=== PATIENT | female | born 1970 ===

== ENCOUNTER 2017-09-21 22:36 | Inpatient (IN) ==
[2017-09-21] MEDS ORDERED: NITROGLYCERIN 2% OINT 1 INCH/GM PACK TOP STA (23:06)
[2017-09-21] MEDS ORDERED: ONDANSETRON 4 MG/2 ML VIAL IV STA (23:06)
[2017-09-21] MEDS ORDERED: ASPIRIN 325 MG TABLET PO STA (23:06)
[2017-09-21] MEDS ORDERED: hydrALAZINE 20 MG/1 ML VIAL IV STA (23:06)
[2017-09-21] MEDS ORDERED: HYDROmorphone 2 MG/1 ML VIAL IV STA (23:06)
[2017-09-21] MEDS ORDERED: METOPROLOL TARTRATE 5 MG/5 ML VIAL IV STA (23:06)
[2017-09-21] MEDS ORDERED: NITROGLYCERIN 2% OINT 1 INCH/GM PACK TOP ONE (23:17)
[2017-09-21] MEDS ORDERED: hydrALAZINE 20 MG/1 ML VIAL ONE (23:17)
[2017-09-21] MEDS ORDERED: METOPROLOL TARTRATE 5 MG/5 ML VIAL IV ONE (23:18)
[2017-09-21] MEDS ORDERED: ONDANSETRON 4 MG/2 ML VIAL ONE (23:18)
[2017-09-21] MEDS ORDERED: HYDROmorphone 2 MG/1 ML VIAL ONE (23:18)
[2017-09-21 23:30] LABS: INR 0.9; PT Patient Result 9.9 SECS
[2017-09-21 23:47] LABS: Alanine Aminotransferase 31 U/L (13-56); Albumin 3.2 G/DL (3.4-5.0); Alkaline Phosphatase 130 U/L (45-117); Aspartate Amino Transferase 29 U/L (0-37); Blood Urea Nitrogen 16 MG/DL (7-18); Calcium 8.3 MG/DL (8.5-10.1); Glucose 107 MG/DL (74-106); Osmolality,Calculated 279.4 MOS/KG (273-304); Potassium 3.9 MMOL/L (3.5-5.1); Sodium 140 MMOL/L (136-145); Total Protein 7.7 G/DL (6.4-8.3)
[2017-09-21 23:52] LABS: Troponin I Only 0.396 NG/ML (0.00-0.045)
[2017-09-21 23:57] LABS: Basophils % 0.2 % (0.0-0.8); Eosinophils # 0.3 10*3/uL (0.0-0.87); Eosinophils % 2.5 % (0.00-10.9); Hematocrit 35.2 VOL% (35.7-47.0); Hemoglobin 12.7 GM/DL (12.0-16.0); Immature Granulocytes % 0.5 %; Immature Granulocytes Absolute 0.05 #; Lymphocytes # 1.2 10*3/uL (1.4-4.0); Lymphocytes % 12.5 % (21.3-54.2); Mean Corpuscular HGB Conc 36.1 GM/DL (32-36); Mean Corpuscular Hemoglobin 31 PG (27-34); Mean Corpuscular Volume 85.6 FL (87-102); Mean Platelet Volume 9.5 FL (9.6-12.0); Monocytes # 0.7 10*3/uL (0.11-0.8); Monocytes % 6.8 % (1.7-12.7); Neutrophils # 7.7 10*3/uL (1.4-7.4); Neutrophils % 77.5 % (38.7-73.9); Red Blood Count 4.11 MC/CUMM (3.8-5.5); Red Cell Distribution Width 13.6 % (9.3-17.3)
[2017-09-21 23:59] LABS: Platelet Count 87 T/CUMM (130-400)
[2017-09-22 00:12] LABS: Platelet Estimate Decreased
[2017-09-22 00:39] LABS: Apearance,Urine CLEAR (Clear); Bilirubin,Urine Negative (Negative); Blood, Urine Small mg/dL (Negative); Glucose,Urine (UA) Negative (Negative); Hyaline Casts,Urine 1 /LPF (0-3); Ketones,Urine Negative (Negative); Nitrite,Urine Negative (Negative); Protein,Urine 100 MG/DL; RBC,Urine 1 /HPF (0-4); Squamous Epithelial Cell,Urine Occasional /HPF (0-10); Urine Color Yellow (Yellow); Urine Specific Gravity 1.011 (1.001-1.035); Urine Urobilinogen < 2.0 EU/DL (0.2-1.0); WBC,Urine 1 /HPF (0-6)
[2017-09-22 00:47] LABS: Barbiturates Screen,Urine Negative (Negative); Benzodiazepines Screen,Urine Negative (Negative); Cannabinoid Screen,Urine Negative (Negative); Opiate Screen,Urine Positive (Negative); Phencyclidine Screen,Urine Negative (Negative)
[2017-09-22] MEDS ORDERED: METOPROLOL TARTRATE 5 MG/5 ML VIAL IV PRN (02:17)
[2017-09-22] MEDS ORDERED: ACETAMINOPHEN 325 MG TABLET PO PRN (03:11)
[2017-09-22] MEDS ORDERED: ONDANSETRON 4 MG/2 ML VIAL IV PRN (03:11)
[2017-09-22] MEDS ORDERED: NICOTINE 21 MG/24 HR PATCH TRANSDERM PRN (03:11)
[2017-09-22] MEDS ORDERED: SODIUM CHLORIDE 0.9% 1,000 ML IV SCH (03:11)
[2017-09-22] MEDS ORDERED: MORPHINE 2 MG/1 ML SYRINGE IV PRN (03:11)
[2017-09-22] MEDS: NITROGLYCERIN 2% OINT 1 INCH/GM PACK TOP SCH ×2 (03:21→17:37)
[2017-09-22] MEDS: LEVOFLOXACIN INJ 750 MG in PREMIX 1 EACH IV SCH (03:24)
[2017-09-22 05:53] LABS: Risk Ratio 2.45; VLDL CHOLESTEROL 13.4 MG/DL
[2017-09-22] MEDS ORDERED: NITROGLYCERIN SL 0.4 MG TABLET SL PRN (05:58)
[2017-09-22] MEDS ORDERED: PROMETHAZINE 25 MG/1 ML VIAL IM PRN (05:59)
[2017-09-22] MEDS ORDERED: METOPROLOL TARTRATE 50 MG TABLET PO SCH (06:51)
[2017-09-22] MEDS ORDERED: TICAGRELOR 90 MG TABLET PO ONE (06:55)
[2017-09-22] MEDS ORDERED: ENOXAPARIN 100 MG/ML SYRINGE SUBCUT ONE (06:57)
[2017-09-22] MEDS ORDERED: NITROGLYCERIN 2% OINT 1 INCH/GM PACK TOP ONE (06:58)
[2017-09-22] MEDS ORDERED: ASPIRIN CHEW 81 MG TABLET PO ONE (06:59)
[2017-09-22] MEDS: METOPROLOL TARTRATE 5 MG/5 ML VIAL IV SCH ×2 (07:10→07:25)
[2017-09-22] MEDS ORDERED: MAGNESIUM SULF RIDER 2 GM in PREMIX 1 EACH IV PRN (07:15)
[2017-09-22] MEDS ORDERED: DIAZEPAM 5 MG TABLET PO ONE (07:15)
[2017-09-22] MEDS ORDERED: diphenhydrAMINE CAP 25 MG CAPSULE PO ONE (07:15)
[2017-09-22] MEDS ORDERED: POTASSIUM CHLORIDE RIDER 10 MEQ in PREMIX 1 EACH IV PRN (07:15)
[2017-09-22] MEDS ORDERED: ROSUVASTATIN 20 MG TABLET PO ONE (07:19)
[2017-09-22] MEDS ORDERED: LIDOCAINE 1% 20 ML VIAL ONE (07:22)
[2017-09-22] MEDS ORDERED: diphenhydrAMINE CAP 25 MG CAPSULE ONE (07:52)
[2017-09-22] MEDS ORDERED: DIAZEPAM 5 MG TABLET ONE (07:52)
[2017-09-22] MEDS ORDERED: MEPERIDINE 25 MG/1 ML VIAL ONE (07:58)
[2017-09-22] MEDS ORDERED: MIDAZOLAM 2 MG/2 ML VIAL ONE (07:58)
[2017-09-22] MEDS ORDERED: diphenhydrAMINE 50 MG/1 ML VIAL ONE (07:58)
[2017-09-22] MEDS ORDERED: hydrALAZINE 20 MG/1 ML VIAL ONE (08:05)
[2017-09-22] MEDS ORDERED: HEPARIN 5,000 UNIT/1 ML VIAL ONE (08:20)
[2017-09-22] MEDS: LEVALBUTEROL 1.25 MG/3 ML NEB RESP TX SCH ×4 (08:20→19:56)
[2017-09-22] MEDS ORDERED: TIROFIBAN 5,000 MCG/100 ML PREMIX IV ONE (08:21)
[2017-09-22] MEDS ORDERED: TIROFIBAN 5,000 MCG/100 ML PREMIX IV SCH (08:28)
[2017-09-22] MEDS ORDERED: NITROGLYCERIN DRIP 50 MG/250 ML BOTTLE IV ONE (08:48)
[2017-09-22] MEDS ORDERED: ENOXAPARIN 40 MG/0.4 ML SYRINGE SUBCUT SCH (09:00)
[2017-09-22] MEDS ORDERED: ASPIRIN 325 MG TABLET PO SCH (09:00)
[2017-09-22] MEDS ORDERED: CARVEDILOL 12.5 MG TABLET PO SCH (10:30)
[2017-09-22 16:58] LABS: CKMB % 8.6 %
[2017-09-22 17:01] LABS: Troponin I Only > 200.000 NG/ML (0.00-0.045)
[2017-09-22] MEDS: CAPTOPRIL 6.25 MG TABLET PO SCH ×2 (17:36→17:40)
[2017-09-22] MEDS: DOCUSATE SODIUM 100 MG CAPSULE PO SCH ×2 (17:37→20:33)
[2017-09-22] MEDS: PANTOPRAZOLE 40 MG TABLET PO SCH (17:40)
[2017-09-22 19:53] LABS: Troponin I Only > 200.000 NG/ML (0.00-0.045)
[2017-09-22] MEDS: ROSUVASTATIN 20 MG TABLET PO SCH (20:32)
[2017-09-22] MEDS: FUROSEMIDE 20 MG/2 ML VIAL IV SCH (20:32)
[2017-09-22] MEDS: TICAGRELOR 90 MG TABLET PO SCH (20:33)
[2017-09-22] MEDS: LOSARTAN 25 MG TABLET PO SCH (20:33)
[2017-09-23] MEDS: LEVALBUTEROL 1.25 MG/3 ML NEB RESP TX SCH ×7 (00:24→19:47)
[2017-09-23] MEDS: NITROGLYCERIN 2% OINT 1 INCH/GM PACK TOP SCH ×2 (00:38→12:52)
[2017-09-23] MEDS: CARVEDILOL 12.5 MG TABLET PO SCH ×3 (00:58→19:46)
[2017-09-23] MEDS: LEVOFLOXACIN INJ 750 MG in PREMIX 1 EACH IV SCH (04:05)
[2017-09-23 05:03] LABS: Calcium 7.5 MG/DL (8.5-10.1); Osmolality,Calculated 283.3 MOS/KG (273-304); Potassium 3.5 MMOL/L (3.5-5.1)
[2017-09-23 05:11] LABS: CKMB % 5.9 %
[2017-09-23 05:20] LABS: Troponin I Only > 200.000 NG/ML (0.00-0.045)
[2017-09-23 06:01] LABS: Basophils % 0.3 % (0.0-0.8); Eosinophils # 0.2 10*3/uL (0.0-0.87); Eosinophils % 2.9 % (0.00-10.9); Hematocrit 29.6 VOL% (35.7-47.0); Immature Granulocytes Absolute 0.06 #; Lymphocytes # 1.7 10*3/uL (1.4-4.0); Lymphocytes % 26.9 % (21.3-54.2); Mean Corpuscular HGB Conc 35.8 GM/DL (32-36); Mean Corpuscular Hemoglobin 31 PG (27-34); Mean Corpuscular Volume 87.3 FL (87-102); Mean Platelet Volume 9.6 FL (9.6-12.0); Monocytes # 0.3 10*3/uL (0.11-0.8); Monocytes % 5.2 % (1.7-12.7); Neutrophils # 3.9 10*3/uL (1.4-7.4); Neutrophils % 63.7 % (38.7-73.9); Platelet Count 121 T/CUMM (130-400); Red Blood Count 3.39 MC/CUMM (3.8-5.5); Red Cell Distribution Width 14.5 % (9.3-17.3)
[2017-09-23 06:05] LABS: White Blood Count 6.2 T/CUMM (4-12)
[2017-09-23 06:06] LABS: Hemoglobin 10.6 GM/DL (12.0-16.0)
[2017-09-23] MEDS: DOCUSATE SODIUM 100 MG CAPSULE PO SCH ×2 (08:52→20:36)
[2017-09-23] MEDS: FUROSEMIDE 20 MG/2 ML VIAL IV SCH (08:52)
[2017-09-23] MEDS: ASPIRIN CHEW 81 MG TABLET PO SCH (08:53)
[2017-09-23] MEDS: LOSARTAN 25 MG TABLET PO SCH ×2 (08:53→20:36)
[2017-09-23] MEDS: PANTOPRAZOLE 40 MG TABLET PO SCH (08:53)
[2017-09-23] MEDS: TICAGRELOR 90 MG TABLET PO SCH ×2 (08:55→22:09)
[2017-09-23 16:24] LABS: CKMB % 3.4 %
[2017-09-23 16:27] LABS: Troponin I Only > 200.000 NG/ML (0.00-0.045)
[2017-09-23 18:23] LABS: CKMB % 2.8 %
[2017-09-23 18:28] LABS: Troponin I Only > 200.000 NG/ML (0.00-0.045)
[2017-09-23] MEDS ORDERED: POTASSIUM CHLORIDE 20 MEQ/15 ML UDCUP PO ONE (20:28)
[2017-09-23] MEDS: ROSUVASTATIN 20 MG TABLET PO SCH (20:36)
[2017-09-23] MEDS: CARVEDILOL 25 MG TABLET PO SCH (20:42)
[2017-09-23] MEDS ORDERED: ZALEPLON 5 MG CAPSULE PO PRN (21:42)
[2017-09-23 22:02] LABS: CKMB % 2.2 %; Troponin I Only 78.1 NG/ML (0.00-0.045)
[2017-09-24] MEDS: LEVALBUTEROL 1.25 MG/3 ML NEB RESP TX SCH ×4 (00:19→12:02)
[2017-09-24 04:00] LABS: Magnesium 1.9 MG/DL (1.8-2.4); Osmolality,Calculated 286.1 MOS/KG (273-304); Potassium 3.5 MMOL/L (3.5-5.1)
[2017-09-24] MEDS: LEVOFLOXACIN INJ 750 MG in PREMIX 1 EACH IV SCH (04:01)
[2017-09-24 07:01] LABS: Basophils % 0.2 % (0.0-0.8); Eosinophils # 0.3 10*3/uL (0.0-0.87); Eosinophils % 4.9 % (0.00-10.9); Hematocrit 31.8 VOL% (35.7-47.0); Hemoglobin 11.5 GM/DL (12.0-16.0); Immature Granulocytes % 0.5 %; Immature Granulocytes Absolute 0.03 #; Lymphocytes % 17.7 % (21.3-54.2); Mean Corpuscular HGB Conc 36.2 GM/DL (32-36); Mean Corpuscular Hemoglobin 32 PG (27-34); Mean Corpuscular Volume 87.1 FL (87-102); Mean Platelet Volume 9.8 FL (9.6-12.0); Monocytes # 0.4 10*3/uL (0.11-0.8); Monocytes % 6.3 % (1.7-12.7); Neutrophils # 4.1 10*3/uL (1.4-7.4); Neutrophils % 70.4 % (38.7-73.9); Platelet Count 110 T/CUMM (130-400); Red Blood Count 3.65 MC/CUMM (3.8-5.5); Red Cell Distribution Width 13.8 % (9.3-17.3); White Blood Count 5.8 T/CUMM (4-12)
[2017-09-24] MEDS ORDERED: FUROSEMIDE 20 MG TABLET PO SCH (09:00)
[2017-09-24] MEDS: DOCUSATE SODIUM 100 MG CAPSULE PO SCH (09:06)
[2017-09-24] MEDS: CARVEDILOL 25 MG TABLET PO SCH (09:06)
[2017-09-24] MEDS: PANTOPRAZOLE 40 MG TABLET PO SCH (09:06)
[2017-09-24] MEDS: LOSARTAN 25 MG TABLET PO SCH (09:06)
[2017-09-24] MEDS: ASPIRIN CHEW 81 MG TABLET PO SCH (09:06)
[2017-09-24] MEDS: TICAGRELOR 90 MG TABLET PO SCH (09:07)
[2017-09-24 11:11] VITALS: BP 121/74
== END 2017-09-24 15:06 | disposition home or self-care (01) | DRG 246 ==
LOC: EDBD → EDUNIT# → N.ED 22:36 → N.EDINP 09-22 02:05 → N.TELEN 09-22 02:50
PROVIDERS: ADMIT Internal Medicine; ATTEND Internal Medicine
PROC: CLCCHCL (ICD-10-PCS; 2017-09-22 08:15)

== ENCOUNTER 2017-10-02 04:01 | Inpatient (IN) ==
[2017-10-02 04:59] LABS: PT Patient Result 10.5 SECS; Partial Thromboplastin Time 27.9 SECS (0-40)
[2017-10-02 05:40] LABS: Albumin 2.8 G/DL (3.4-5.0); Bilirubin,Total 0.4 MG/DL (0.2-1.0); Calcium 7.8 MG/DL (8.5-10.1); Osmolality,Calculated 283.7 MOS/KG (273-304); Potassium 3.5 MMOL/L (3.5-5.1); Total Protein 7.2 G/DL (6.4-8.3)
[2017-10-02] MEDS ORDERED: SODIUM CHLORIDE 0.9% 2,000 ML IV STA (06:27)
[2017-10-02] MEDS ORDERED: ALBUTEROL 2.5 MG/3 ML NEB RESP TX PRN (06:30)
[2017-10-02] MEDS ORDERED: ONDANSETRON 4 MG/2 ML VIAL IV PRN (06:30)
[2017-10-02] MEDS ORDERED: SODIUM CHLORIDE 0.9% 1,000 ML IV SCH (06:30)
[2017-10-02] MEDS ORDERED: SODIUM CHLORIDE 0.9% 1,000 ML IV PRN (06:41)
[2017-10-02 06:42] LABS: Basophils % 0.4 % (0.0-0.8); Eosinophils # 0.1 10*3/uL (0.0-0.87); Eosinophils % 5.9 % (0.00-10.9); Hematocrit 29.2 VOL% (35.7-47.0); Immature Granulocytes % 0.4 %; Immature Granulocytes Absolute 0.01 #; Lymphocytes # 0.6 10*3/uL (1.4-4.0); Lymphocytes % 24.6 % (21.3-54.2); Mean Corpuscular HGB Conc 34.2 GM/DL (32-36); Mean Corpuscular Hemoglobin 31 PG (27-34); Mean Corpuscular Volume 89.6 FL (87-102); Monocytes # 0.2 10*3/uL (0.11-0.8); Monocytes % 9.3 % (1.7-12.7); Neutrophils # 1.4 10*3/uL (1.4-7.4); Neutrophils % 59.4 % (38.7-73.9); Red Blood Count 3.26 MC/CUMM (3.8-5.5); Red Cell Distribution Width 13.6 % (9.3-17.3); White Blood Count 2.4 T/CUMM (4-12)
[2017-10-02 07:02] LABS: Platelet Count 1 T/CUMM (130-400)
[2017-10-02] MEDS ORDERED: PNEUMOCOCCAL VACCINE (23 VALENT) 0.5 ML VIAL IM ONE (08:17)
[2017-10-02] MEDS ORDERED: PANTOPRAZOLE 40 MG TABLET PO SCH (09:00)
[2017-10-02 09:03] LABS: Eosinophils # 0.1 10*3/uL (0.0-0.87); Eosinophils % 7.1 % (0.00-10.9); Hematocrit 26.3 VOL% (35.7-47.0); Hemoglobin 9.1 GM/DL (12.0-16.0); Immature Granulocytes Absolute 0.02 #; Lymphocytes # 0.6 10*3/uL (1.4-4.0); Lymphocytes % 32.5 % (21.3-54.2); Mean Corpuscular HGB Conc 34.6 GM/DL (32-36); Mean Corpuscular Hemoglobin 31 PG (27-34); Mean Corpuscular Volume 89.5 FL (87-102); Mean Platelet Volume 11.3 FL (9.6-12.0); Monocytes # 0.3 10*3/uL (0.11-0.8); Monocytes % 12.7 % (1.7-12.7); Neutrophils # 0.9 10*3/uL (1.4-7.4); Neutrophils % 46.7 % (38.7-73.9); Red Blood Count 2.94 MC/CUMM (3.8-5.5); Red Cell Distribution Width 13.5 % (9.3-17.3)
[2017-10-02 09:10] LABS: Platelet Count 10 T/CUMM (130-400)
[2017-10-02] MEDS: methylPREDNISolone SOD SUC 125 MG/2 ML VIAL IV SCH ×3 (09:19→20:26)
[2017-10-02 11:01] LABS: Total Protein 6.3 G/DL (6.4-8.3)
[2017-10-02 11:04] LABS: Eosinophils # 0.1 10*3/uL (0.0-0.87); Eosinophils % 5.9 % (0.00-10.9); Hematocrit 25.9 VOL% (35.7-47.0); Immature Granulocytes % 1.4 %; Immature Granulocytes Absolute 0.03 #; Lymphocytes # 0.5 10*3/uL (1.4-4.0); Lymphocytes % 22.6 % (21.3-54.2); Mean Corpuscular HGB Conc 34.7 GM/DL (32-36); Mean Corpuscular Hemoglobin 31 PG (27-34); Mean Corpuscular Volume 88.4 FL (87-102); Mean Platelet Volume 11.6 FL (9.6-12.0); Monocytes # 0.2 10*3/uL (0.11-0.8); Monocytes % 6.8 % (1.7-12.7); Neutrophils # 1.4 10*3/uL (1.4-7.4); Neutrophils % 63.3 % (38.7-73.9); Red Blood Count 2.93 MC/CUMM (3.8-5.5); Red Cell Distribution Width 13.4 % (9.3-17.3); White Blood Count 2.2 T/CUMM (4-12)
[2017-10-02 11:05] LABS: Platelet Count 9 T/CUMM (130-400)
[2017-10-02 11:28] LABS: Band Neutrophils 11 % (0-10); Lymphocytes 28 % (20-55); Platelet Estimate Decreased; Segmented Neutrophils 57 % (50-85); Total Cells Counted 100
[2017-10-02 11:34] LABS: % Iron Saturation 18.6 % (18-50); Ferritin 236.9 ng/ml (8-252)
[2017-10-02 11:35] LABS: Band Neutrophils 4 % (0-10); Eosinophils 10 % (0-10); Lymphocytes 32 % (20-55); Segmented Neutrophils 53 % (50-85); Total Cells Counted 100
[2017-10-02 11:36] LABS: Platelet Estimate Decreased
[2017-10-02] MEDS: ALPRAZolam 0.25 MG TABLET PO PRN ×2 (11:55→20:26)
[2017-10-02 12:07] LABS: Folate 8.4 NG/ML (5.4-24.0); Vitamin B12 250 PG/ML (211-911)
[2017-10-02 12:50] LABS: Eosinophils # 0.1 10*3/uL (0.0-0.87); Eosinophils % 3.3 % (0.00-10.9); Hematocrit 28.7 VOL% (35.7-47.0); Immature Granulocytes % 1.6 %; Immature Granulocytes Absolute 0.04 #; Lymphocytes # 0.6 10*3/uL (1.4-4.0); Lymphocytes % 23.2 % (21.3-54.2); Mean Corpuscular HGB Conc 34.8 GM/DL (32-36); Mean Corpuscular Hemoglobin 31 PG (27-34); Mean Corpuscular Volume 88.3 FL (87-102); Monocytes # 0.1 10*3/uL (0.11-0.8); Monocytes % 5.7 % (1.7-12.7); Neutrophils # 1.6 10*3/uL (1.4-7.4); Neutrophils % 66.2 % (38.7-73.9); Red Blood Count 3.25 MC/CUMM (3.8-5.5); Red Cell Distribution Width 13.3 % (9.3-17.3); White Blood Count 2.5 T/CUMM (4-12)
[2017-10-02 12:54] LABS: Platelet Count 6 T/CUMM (130-400)
[2017-10-02] MEDS: SODIUM CHLORIDE 0.65% NASAL SPRAY 45 ML BOTTLE BOTH NARES SCH ×3 (13:41→20:27)
[2017-10-02] MEDS: CARVEDILOL 3.125 MG TABLET PO SCH ×2 (13:41→20:26)
[2017-10-02 17:23] LABS: Basophils % 0.4 % (0.0-0.8); Eosinophils % 0.9 % (0.00-10.9); Hematocrit 28.4 VOL% (35.7-47.0); Immature Granulocytes Absolute 0.07 #; Lymphocytes # 0.6 10*3/uL (1.4-4.0); Lymphocytes % 27.3 % (21.3-54.2); Mean Corpuscular HGB Conc 35.2 GM/DL (32-36); Mean Corpuscular Hemoglobin 31 PG (27-34); Mean Corpuscular Volume 87.7 FL (87-102); Monocytes # 0.1 10*3/uL (0.11-0.8); Neutrophils # 1.5 10*3/uL (1.4-7.4); Neutrophils % 65.4 % (38.7-73.9); Red Blood Count 3.24 MC/CUMM (3.8-5.5); Red Cell Distribution Width 13.3 % (9.3-17.3); White Blood Count 2.3 T/CUMM (4-12)
[2017-10-02 17:26] LABS: Platelet Count 1 T/CUMM (130-400)
[2017-10-02] MEDS: DOCUSATE SODIUM 100 MG CAPSULE PO SCH (20:26)
[2017-10-02] MEDS: ROSUVASTATIN 20 MG TABLET PO SCH (20:26)
[2017-10-02 21:45] LABS: Basophils % 0.5 % (0.0-0.8); Eosinophils % 0.5 % (0.00-10.9); Hemoglobin 9.9 GM/DL (12.0-16.0); Immature Granulocytes % 1.8 %; Immature Granulocytes Absolute 0.04 #; Lymphocytes # 0.7 10*3/uL (1.4-4.0); Lymphocytes % 31.4 % (21.3-54.2); Mean Corpuscular HGB Conc 36.7 GM/DL (32-36); Mean Corpuscular Hemoglobin 31 PG (27-34); Mean Corpuscular Volume 83.9 FL (87-102); Monocytes % 1.8 % (1.7-12.7); Neutrophils # 1.4 10*3/uL (1.4-7.4); Red Blood Count 3.22 MC/CUMM (3.8-5.5); Red Cell Distribution Width 12.8 % (9.3-17.3); White Blood Count 2.2 T/CUMM (4-12)
[2017-10-02 21:55] LABS: Platelet Count 2 T/CUMM (130-400)
[2017-10-02 22:14] LABS: Atypical Lymphocytes Few; Band Neutrophils 8 % (0-10); Eosinophils 1 % (0-10); Lymphocytes 32 % (20-55); Metamyelocytes 1 %; Myelocytes 2 %; Nucleated Red Blood Cells 1 (0-5); Platelet Estimate Decreased; Promyelocytes 1 %; Segmented Neutrophils 55 % (50-85); Total Cells Counted 100
[2017-10-02] MEDS ORDERED: ZALEPLON 5 MG CAPSULE PO SCH (23:30)
[2017-10-02] MEDS: ZALEPLON 5 MG CAPSULE PO SCH (23:39)
[2017-10-03] MEDS: methylPREDNISolone SOD SUC 125 MG/2 ML VIAL IV SCH ×4 (03:05→20:59)
[2017-10-03] MEDS: MORPHINE 2 MG/1 ML SYRINGE IV PRN ×2 (04:45→20:59)
[2017-10-03 04:55] LABS: Eosinophils % 0.3 % (0.00-10.9); Hematocrit 26.6 VOL% (35.7-47.0); Immature Granulocytes % 1.5 %; Immature Granulocytes Absolute 0.05 #; Lymphocytes % 31.6 % (21.3-54.2); Mean Corpuscular HGB Conc 37.6 GM/DL (32-36); Mean Corpuscular Hemoglobin 31 PG (27-34); Mean Corpuscular Volume 83.6 FL (87-102); Monocytes # 0.1 10*3/uL (0.11-0.8); Monocytes % 3.3 % (1.7-12.7); Neutrophils # 2.1 10*3/uL (1.4-7.4); Neutrophils % 63.3 % (38.7-73.9); Red Blood Count 3.18 MC/CUMM (3.8-5.5); Red Cell Distribution Width 12.8 % (9.3-17.3); White Blood Count 3.3 T/CUMM (4-12)
[2017-10-03 04:57] LABS: Platelet Count 1 T/CUMM (130-400)
[2017-10-03 05:44] LABS: Osmolality,Calculated 281.7 MOS/KG (273-304); Potassium 3.7 MMOL/L (3.5-5.1)
[2017-10-03] MEDS: CARVEDILOL 3.125 MG TABLET PO SCH ×2 (08:23→20:58)
[2017-10-03] MEDS: DOCUSATE SODIUM 100 MG CAPSULE PO SCH ×2 (08:23→20:58)
[2017-10-03] MEDS: SODIUM CHLORIDE 0.65% NASAL SPRAY 45 ML BOTTLE BOTH NARES SCH ×4 (08:24→20:58)
[2017-10-03 09:24] LABS: Hematocrit 30.3 VOL% (35.7-47.0); Hemoglobin 10.7 GM/DL (12.0-16.0); Immature Granulocytes % 1.3 %; Immature Granulocytes Absolute 0.05 #; Lymphocytes # 1.3 10*3/uL (1.4-4.0); Lymphocytes % 31.8 % (21.3-54.2); Mean Corpuscular HGB Conc 35.3 GM/DL (32-36); Mean Corpuscular Hemoglobin 31 PG (27-34); Mean Corpuscular Volume 86.8 FL (87-102); Monocytes # 0.1 10*3/uL (0.11-0.8); Monocytes % 2.5 % (1.7-12.7); Neutrophils # 2.5 10*3/uL (1.4-7.4); Neutrophils % 64.4 % (38.7-73.9); Red Blood Count 3.49 MC/CUMM (3.8-5.5); Red Cell Distribution Width 13.2 % (9.3-17.3); White Blood Count 3.9 T/CUMM (4-12)
[2017-10-03 09:30] LABS: Platelet Count 5 T/CUMM (130-400)
[2017-10-03] MEDS: traMADol 50 MG TABLET PO PRN ×2 (11:28→18:48)
[2017-10-03] MEDS ORDERED: DEXTROSE 50% 25 GM/50 ML VIAL IV PRN (11:51)
[2017-10-03] MEDS ORDERED: GLUCAGON 1 MG VIAL IM PRN (11:51)
[2017-10-03] MEDS: CYANOCOBALAMIN 500 MCG TABLET PO SCH (15:31)
[2017-10-03] MEDS: ALPRAZolam 0.25 MG TABLET PO PRN (15:35)
[2017-10-03] MEDS: INSULIN LISPRO 100 UNIT/ML SUBCUT SCH ×2 (16:59→20:59)
[2017-10-03] MEDS: ROSUVASTATIN 20 MG TABLET PO SCH (20:58)
[2017-10-03] MEDS: ZALEPLON 5 MG CAPSULE PO SCH (20:58)
[2017-10-04] MEDS: methylPREDNISolone SOD SUC 125 MG/2 ML VIAL IV SCH ×4 (03:08→21:37)
[2017-10-04 07:52] LABS: Albumin (SPE) 3.2 G/DL (3.2-5.3); Albumin (SPE) Rel % 50.6 %; Alpha 1 (SPE) 0.2 G/DL (0.1-0.4); Alpha 1 (SPE) Rel % 3.5 %; Alpha 2 (SPE) 0.7 G/DL (0.4-1.0); Alpha 2 (SPE) Rel % 10.9 %; Beta (SPE) 0.5 G/DL (0.5-1.1); Beta (SPE) Rel % 7.8 %; Total Protein (Chem) 6.3 G/DL (6.4-8.3)
[2017-10-04 07:53] LABS: Gamma (SPE) 1.7 G/DL (0.7-1.7); Gamma (SPE) Rel % 27.2 %
[2017-10-04 08:10] LABS: Basophils % 0.2 % (0.0-0.8); Eosinophils % 0.2 % (0.00-10.9); Hematocrit 27.3 VOL% (35.7-47.0); Hemoglobin 9.4 GM/DL (12.0-16.0); Immature Granulocytes Absolute 0.12 #; Lymphocytes # 1.4 10*3/uL (1.4-4.0); Lymphocytes % 23.3 % (21.3-54.2); Mean Corpuscular HGB Conc 34.4 GM/DL (32-36); Mean Corpuscular Hemoglobin 30 PG (27-34); Mean Corpuscular Volume 87.8 FL (87-102); Monocytes # 0.3 10*3/uL (0.11-0.8); Monocytes % 4.6 % (1.7-12.7); Neutrophils # 4.1 10*3/uL (1.4-7.4); Neutrophils % 69.7 % (38.7-73.9); Red Blood Count 3.11 MC/CUMM (3.8-5.5); Red Cell Distribution Width 13.3 % (9.3-17.3); White Blood Count 5.9 T/CUMM (4-12)
[2017-10-04 08:24] LABS: Platelet Count 21 T/CUMM (130-400)
[2017-10-04 08:44] LABS: Hypochromasia 1+; Platelet Estimate Decreased
[2017-10-04 08:45] LABS: Giant Platelets Few; Microcytosis Slight; Ovalocytes Slight
[2017-10-04] MEDS: CYANOCOBALAMIN 500 MCG TABLET PO SCH (09:09)
[2017-10-04] MEDS: DOCUSATE SODIUM 100 MG CAPSULE PO SCH ×2 (09:10→21:35)
[2017-10-04] MEDS: CARVEDILOL 3.125 MG TABLET PO SCH ×2 (09:10→21:36)
[2017-10-04] MEDS: SODIUM CHLORIDE 0.65% NASAL SPRAY 45 ML BOTTLE BOTH NARES SCH ×4 (09:10→21:37)
[2017-10-04] MEDS: INSULIN LISPRO 100 UNIT/ML SUBCUT SCH ×4 (09:25→21:36)
[2017-10-04] MEDS: traMADol 50 MG TABLET PO PRN ×3 (09:25→20:02)
[2017-10-04] MEDS ORDERED: diphenhydrAMINE CAP 50 MG CAPSULE PO PRN (16:52)
[2017-10-04] MEDS: ZALEPLON 5 MG CAPSULE PO SCH (21:35)
[2017-10-04] MEDS: ROSUVASTATIN 20 MG TABLET PO SCH (21:36)
[2017-10-05] MEDS: methylPREDNISolone SOD SUC 125 MG/2 ML VIAL IV SCH (03:08)
[2017-10-05] MEDS: ALPRAZolam 0.25 MG TABLET PO PRN ×2 (03:13→09:44)
[2017-10-05 04:17] LABS: Basophils % 0.1 % (0.0-0.8); Hematocrit 28.6 VOL% (35.7-47.0); Hemoglobin 9.9 GM/DL (12.0-16.0); Immature Granulocytes % 4.7 %; Immature Granulocytes Absolute 0.41 #; Lymphocytes # 1.7 10*3/uL (1.4-4.0); Lymphocytes % 19.7 % (21.3-54.2); Mean Corpuscular HGB Conc 34.6 GM/DL (32-36); Mean Corpuscular Hemoglobin 31 PG (27-34); Mean Corpuscular Volume 88.5 FL (87-102); Mean Platelet Volume 13.1 FL (9.6-12.0); Monocytes # 0.5 10*3/uL (0.11-0.8); Monocytes % 5.4 % (1.7-12.7); NRBC # 0.02 10*3/uL; Neutrophils # 6.1 10*3/uL (1.4-7.4); Neutrophils % 70.1 % (38.7-73.9); Platelet Count 44 T/CUMM (130-400); Red Blood Count 3.23 MC/CUMM (3.8-5.5); Red Cell Distribution Width 13.7 % (9.3-17.3); White Blood Count 8.7 T/CUMM (4-12)
[2017-10-05 04:45] LABS: Calcium 7.7 MG/DL (8.5-10.1); Osmolality,Calculated 292.7 MOS/KG (273-304); Potassium 3.9 MMOL/L (3.5-5.1)
[2017-10-05 06:47] LABS: Immuno Free Light Chain Kappa 24.94 MG/DL (0.33-1.94); Immuno Free Light Chain Lambda 11.36 MG/DL (0.57-2.63)
[2017-10-05] MEDS ORDERED: methylPREDNISolone SOD SUC 125 MG/2 ML VIAL IV ONE (08:05)
[2017-10-05] MEDS ORDERED: predniSONE 20 MG TABLET PO SCH (09:00)
[2017-10-05] MEDS: CYANOCOBALAMIN 500 MCG TABLET PO SCH (09:35)
[2017-10-05] MEDS: FERROUS SULFATE 325 MG TABLET PO SCH ×2 (09:35→21:52)
[2017-10-05] MEDS: CARVEDILOL 3.125 MG TABLET PO SCH (09:36)
[2017-10-05] MEDS: INSULIN LISPRO 100 UNIT/ML SUBCUT SCH ×4 (09:36→21:52)
[2017-10-05] MEDS: DOCUSATE SODIUM 100 MG CAPSULE PO SCH ×2 (09:36→21:52)
[2017-10-05] MEDS: traMADol 50 MG TABLET PO PRN (09:43)
[2017-10-05] MEDS: CLOPIDOGREL 75 MG TABLET PO SCH (09:55)
[2017-10-05] MEDS: SODIUM CHLORIDE 0.65% NASAL SPRAY 45 ML BOTTLE BOTH NARES SCH (09:55)
[2017-10-05] MEDS: LOSARTAN 25 MG TABLET PO SCH ×2 (13:19→21:52)
[2017-10-05] MEDS ORDERED: SIMETHICONE CHEW 125 MG TABLET PO PRN (15:13)
[2017-10-05 20:16] LABS: HIT Interpretation Negative (Negative)
[2017-10-05] MEDS: ROSUVASTATIN 20 MG TABLET PO SCH (21:51)
[2017-10-05] MEDS: ZALEPLON 5 MG CAPSULE PO SCH (21:51)
[2017-10-05] MEDS: CARVEDILOL 6.25 MG TABLET PO SCH (21:52)
[2017-10-06 05:03] LABS: Basophils % 0.3 % (0.0-0.8); Eosinophils % 0.1 % (0.00-10.9); Hemoglobin 9.9 GM/DL (12.0-16.0); Immature Granulocytes % 4.6 %; Immature Granulocytes Absolute 0.53 #; Lymphocytes # 3.3 10*3/uL (1.4-4.0); Lymphocytes % 28.9 % (21.3-54.2); Mean Corpuscular HGB Conc 34.1 GM/DL (32-36); Mean Corpuscular Hemoglobin 31 PG (27-34); Mean Corpuscular Volume 89.2 FL (87-102); Mean Platelet Volume 10.5 FL (9.6-12.0); Monocytes # 1.1 10*3/uL (0.11-0.8); Monocytes % 9.7 % (1.7-12.7); Neutrophils # 6.5 10*3/uL (1.4-7.4); Neutrophils % 56.4 % (38.7-73.9); Platelet Count 44 T/CUMM (130-400); Red Blood Count 3.25 MC/CUMM (3.8-5.5); Red Cell Distribution Width 13.9 % (9.3-17.3); White Blood Count 11.5 T/CUMM (4-12)
[2017-10-06 05:30] LABS: Band Neutrophils 2 % (0-10); Lymphocytes 26 % (20-55); Nucleated Red Blood Cells 1 (0-5); Segmented Neutrophils 64 % (50-85); Total Cells Counted 100
[2017-10-06 05:31] LABS: Hypochromasia 1+; Ovalocytes Slight
[2017-10-06 05:32] LABS: Microcytosis Slight; Platelet Estimate Decreased
[2017-10-06] MEDS: INSULIN LISPRO 100 UNIT/ML SUBCUT SCH ×2 (07:50→12:59)
[2017-10-06] MEDS ORDERED: predniSONE 20 MG TABLET PO SCH (07:54)
[2017-10-06 08:21] VITALS: BP 131/74
[2017-10-06] MEDS: FERROUS SULFATE 325 MG TABLET PO SCH (10:02)
[2017-10-06] MEDS: CLOPIDOGREL 75 MG TABLET PO SCH (10:02)
[2017-10-06] MEDS: DOCUSATE SODIUM 100 MG CAPSULE PO SCH (10:03)
[2017-10-06] MEDS: CYANOCOBALAMIN 500 MCG TABLET PO SCH (10:03)
[2017-10-06] MEDS: CARVEDILOL 6.25 MG TABLET PO SCH (10:03)
[2017-10-06] MEDS: LOSARTAN 25 MG TABLET PO SCH (10:03)
[2017-10-06] MEDS: ALPRAZolam 0.25 MG TABLET PO PRN (10:06)
[2017-10-07] MEDS ORDERED: ASPIRIN EC 81 MG TABLET PO SCH (09:00)
== END 2017-10-06 12:30 | disposition home or self-care (01) | DRG 813 ==
LOC: EDBD → EDUNIT# → N.ED 04:01 → N.EDINP 06:28 → SUATTDRO 06:28 → N.CC 07:22 → N.TELES 10-03 08:37
PROVIDERS: ADMIT Internal Medicine; ATTEND Internal Medicine

== ENCOUNTER 2017-11-06 16:37 | Inpatient (IN) ==
[2017-11-06] MEDS ORDERED: PIPERACILLIN/TAZOBACTAM 3,375 MG VIAL IV ONE (16:51)
[2017-11-06 16:59] LABS: ABG Base Excess -6.6 MMOL/L (-2.5-2.5); ABG HCO3 21.6 MMOL/L (20-26); ABG Oxygen Saturation 95.8 % (95-100); ABG PCO2 56.7 MM HG (35-48); ABG PO2 98.3 MM HG (80-95); ABG TCO2 23.3 MMOL/L (23-27); Pt O2 Delivery Device Ventilator
[2017-11-06 17:03] LABS: ABG PH 7.198 (7.35-7.45)
[2017-11-06] MEDS ORDERED: SODIUM BICARBONATE 50 MEQ/50 ML VIAL IV STA (17:09)
[2017-11-06] MEDS ORDERED: SODIUM BICARBONATE 50 MEQ/50 ML SYRINGE IV ONE (17:09)
[2017-11-06] MEDS: PIPERACILLIN/TAZOBACTAM 3,375 MG in SODIUM CHLORIDE 0.9% 100 ML IV SCH (17:15)
[2017-11-06 17:17] LABS: Basophils % 0.1 % (0.0-0.8); Hematocrit 29.6 VOL% (35.7-47.0); Hemoglobin 9.1 GM/DL (12.0-16.0); Immature Granulocytes % 1.6 %; Immature Granulocytes Absolute 0.32 #; Lymphocytes # 2.2 10*3/uL (1.4-4.0); Lymphocytes % 10.6 % (21.3-54.2); Mean Corpuscular HGB Conc 30.7 GM/DL (32-36); Mean Corpuscular Hemoglobin 29 PG (27-34); Mean Corpuscular Volume 94.6 FL (87-102); Mean Platelet Volume 10.9 FL (9.6-12.0); Monocytes # 0.5 10*3/uL (0.11-0.8); Monocytes % 2.3 % (1.7-12.7); Neutrophils # 17.6 10*3/uL (1.4-7.4); Neutrophils % 85.4 % (38.7-73.9); Red Blood Count 3.13 MC/CUMM (3.8-5.5); Red Cell Distribution Width 14.5 % (9.3-17.3); White Blood Count 20.5 T/CUMM (4-12)
[2017-11-06 17:20] LABS: Platelet Count 111 T/CUMM (130-400)
[2017-11-06 17:22] LABS: Amorphous Crystals,Urine Occasional /HPF (Few); Apearance,Urine CLOUDY (Clear); Bilirubin,Urine Negative (Negative); Blood, Urine Negative (Negative); Glucose,Urine (UA) Negative (Negative); Hyaline Casts,Urine 13 /LPF (0-3); Ketones,Urine Negative (Negative); Mucus,Urine Occasional /LPF (Occasional); Nitrite,Urine Negative (Negative); Protein,Urine 30 MG/DL; RBC,Urine 4 /HPF (0-4); Squamous Epithelial Cell,Urine Occasional /HPF (0-10); Urine Color Amber (Yellow); Urine Specific Gravity 1.012 (1.001-1.035); WBC,Urine 3 /HPF (0-6)
[2017-11-06] MEDS ORDERED: SODIUM CHLORIDE 0.9% 3,150 ML IV ONE (17:22)
[2017-11-06] MEDS ORDERED: ALBUTEROL 2.5 MG/3 ML NEB RESP TX PRN ×2 (17:27→17:49)
[2017-11-06 17:33] LABS: Albumin 2.2 G/DL (3.4-5.0); Bilirubin,Total 0.7 MG/DL (0.2-1.0); Calcium 7.7 MG/DL (8.5-10.1); Osmolality,Calculated 291.7 MOS/KG (273-304); Potassium 3.9 MMOL/L (3.5-5.1); Total Protein 6.9 G/DL (6.4-8.3)
[2017-11-06 17:35] LABS: Lactic Acid 0.5 MMOL/L (0.4-2.0)
[2017-11-06] MEDS ORDERED: ONDANSETRON 4 MG/2 ML VIAL IV PRN (17:49)
[2017-11-06] MEDS ORDERED: MORPHINE 2 MG/1 ML SYRINGE IV PRN (17:49)
[2017-11-06] MEDS: methylPREDNISolone SOD SUC 125 MG/2 ML VIAL IV SCH (18:18)
[2017-11-06] MEDS: PANTOPRAZOLE 40 MG VIAL IV SCH (18:18)
[2017-11-06] MEDS: PROPOFOL 1,000 MG/100 ML BOTTLE IV SCH ×2 (18:18→21:46)
[2017-11-06] MEDS: SODIUM CHLORIDE 0.45% 1,000 ML IV SCH (18:23)
[2017-11-06] MEDS: MIDAZOLAM 100 MG in SODIUM CHLORIDE 0.9% 80 ML IV SCH (18:54)
[2017-11-06] MEDS: NOREPINEPHRINE 8 MG in SODIUM CHLORIDE 0.9% 242 ML IV SCH ×2 (19:30→19:51)
[2017-11-06] MEDS ORDERED: fentaNYL 100 MCG/2 ML VIAL IV ONE (20:06)
[2017-11-06 20:45] LABS: Band Neutrophils 4 % (0-10); Lymphocytes 9 % (20-55); Platelet Estimate Decreased; Segmented Neutrophils 83 % (50-85)
[2017-11-06 20:46] LABS: Total Cells Counted 100
[2017-11-06] MEDS: fentaNYL INJ 1,250 MCG in SODIUM CHLORIDE 0.9% 225 ML IV SCH (20:47)
[2017-11-06] MEDS: ALBUTEROL/IPRATROPIUM 3 ML NEB RESP TX SCH (20:51)
[2017-11-06] MEDS: LEVOFLOXACIN INJ 750 MG in PREMIX 1 EACH IV SCH (22:27)
[2017-11-07] MEDS: VANCOMYCIN INJ 1,500 MG in SODIUM CHLORIDE 0.9% 500 ML IV SCH (00:01)
[2017-11-07] MEDS: methylPREDNISolone SOD SUC 125 MG/2 ML VIAL IV SCH ×4 (00:06→18:43)
[2017-11-07] MEDS ORDERED: NOREPINEPHRINE 4 MG/4 ML VIAL IV ONE (00:16)
[2017-11-07] MEDS: PROPOFOL 1,000 MG/100 ML BOTTLE IV SCH ×5 (00:31→21:03)
[2017-11-07] MEDS: ALBUTEROL/IPRATROPIUM 3 ML NEB RESP TX SCH ×4 (00:34→20:44)
[2017-11-07] MEDS: PIPERACILLIN/TAZOBACTAM 3,375 MG in SODIUM CHLORIDE 0.9% 100 ML IV SCH ×3 (02:13→18:23)
[2017-11-07] MEDS: NOREPINEPHRINE 8 MG in SODIUM CHLORIDE 0.9% 242 ML IV SCH ×3 (03:16→21:08)
[2017-11-07 04:04] LABS: Allen Test Positive; Pt O2 Delivery Device Ventilator
[2017-11-07 04:05] LABS: ABG Base Excess -3.7 MMOL/L (-2.5-2.5); ABG HCO3 22.9 MMOL/L (20-26); ABG PCO2 48.4 MM HG (35-48); ABG PH 7.292 (7.35-7.45); ABG PO2 221.8 MM HG (80-95); ABG TCO2 24.3 MMOL/L (23-27)
[2017-11-07 04:32] LABS: Basophils % 0.1 % (0.0-0.8); Hemoglobin 8.4 GM/DL (12.0-16.0); Immature Granulocytes % 2.6 %; Immature Granulocytes Absolute 0.55 #; Lymphocytes # 0.6 10*3/uL (1.4-4.0); Lymphocytes % 2.7 % (21.3-54.2); Mean Corpuscular Hemoglobin 29 PG (27-34); Mean Corpuscular Volume 96.6 FL (87-102); Mean Platelet Volume 9.5 FL (9.6-12.0); Monocytes # 0.4 10*3/uL (0.11-0.8); Monocytes % 1.9 % (1.7-12.7); Neutrophils # 19.4 10*3/uL (1.4-7.4); Neutrophils % 92.7 % (38.7-73.9); Platelet Count 217 T/CUMM (130-400); Red Cell Distribution Width 14.6 % (9.3-17.3); White Blood Count 20.9 T/CUMM (4-12)
[2017-11-07 04:53] LABS: Band Neutrophils 42 % (0-10); Lymphocytes 1 % (20-55); Segmented Neutrophils 56 % (50-85); Total Cells Counted 100
[2017-11-07 04:54] LABS: Anisocytosis 1+; Poikilocytosis 1+; Polychromasia Slight
[2017-11-07 05:25] LABS: Albumin 2.2 G/DL (3.4-5.0); Bilirubin,Total 1.1 MG/DL (0.2-1.0); Calcium 7.9 MG/DL (8.5-10.1); Osmolality,Calculated 294.3 MOS/KG (273-304); Total Protein 6.1 G/DL (6.4-8.3)
[2017-11-07] MEDS: SODIUM CHLORIDE 0.45% 1,000 ML IV SCH ×2 (08:29→21:02)
[2017-11-07] MEDS ORDERED: TICAGRELOR 90 MG TABLET PO ONE (15:11)
[2017-11-07] MEDS: fentaNYL INJ 1,250 MCG in SODIUM CHLORIDE 0.9% 225 ML IV SCH (15:58)
[2017-11-07] MEDS: ASPIRIN CHEW 81 MG TABLET PO SCH (16:09)
[2017-11-07] MEDS: MIDAZOLAM 100 MG in SODIUM CHLORIDE 0.9% 80 ML IV SCH (18:26)
[2017-11-07] MEDS: TICAGRELOR 90 MG TABLET PO SCH (21:04)
[2017-11-07] MEDS: PANTOPRAZOLE 40 MG VIAL IV SCH (21:09)
[2017-11-08] MEDS: VANCOMYCIN INJ 1,500 MG in SODIUM CHLORIDE 0.9% 500 ML IV SCH
[2017-11-08] MEDS: ALBUTEROL/IPRATROPIUM 3 ML NEB RESP TX SCH ×4 (00:22→19:47)
[2017-11-08] MEDS: methylPREDNISolone SOD SUC 125 MG/2 ML VIAL IV SCH ×4 (00:53→18:05)
[2017-11-08] MEDS: PIPERACILLIN/TAZOBACTAM 3,375 MG in SODIUM CHLORIDE 0.9% 100 ML IV SCH ×4 (00:54→17:00)
[2017-11-08 03:23] LABS: Basophils % 0.1 % (0.0-0.8); Hematocrit 27.3 VOL% (35.7-47.0); Hemoglobin 8.8 GM/DL (12.0-16.0); Immature Granulocytes % 1.3 %; Immature Granulocytes Absolute 0.13 #; Lymphocytes # 0.8 10*3/uL (1.4-4.0); Lymphocytes % 8.2 % (21.3-54.2); Mean Corpuscular HGB Conc 32.2 GM/DL (32-36); Mean Corpuscular Hemoglobin 30 PG (27-34); Mean Corpuscular Volume 91.6 FL (87-102); Mean Platelet Volume 9.6 FL (9.6-12.0); Monocytes # 0.2 10*3/uL (0.11-0.8); Monocytes % 2.4 % (1.7-12.7); Neutrophils # 8.7 10*3/uL (1.4-7.4); Platelet Count 200 T/CUMM (130-400); Red Blood Count 2.98 MC/CUMM (3.8-5.5); Red Cell Distribution Width 14.1 % (9.3-17.3); White Blood Count 9.9 T/CUMM (4-12)
[2017-11-08 03:46] LABS: Magnesium 2.3 MG/DL (1.8-2.4); Osmolality,Calculated 297.1 MOS/KG (273-304); Potassium 3.7 MMOL/L (3.5-5.1)
[2017-11-08] MEDS: PROPOFOL 1,000 MG/100 ML BOTTLE IV SCH ×5 (06:23→23:15)
[2017-11-08] MEDS: SODIUM CHLORIDE 0.45% 1,000 ML IV SCH ×3 (09:01→22:30)
[2017-11-08] MEDS: fentaNYL INJ 1,250 MCG in SODIUM CHLORIDE 0.9% 225 ML IV SCH ×3 (09:34→21:41)
[2017-11-08] MEDS: TICAGRELOR 90 MG TABLET PO SCH ×2 (12:37→21:12)
[2017-11-08] MEDS: ASPIRIN CHEW 81 MG TABLET PO SCH (12:37)
[2017-11-08] MEDS: PANTOPRAZOLE 40 MG VIAL IV SCH (18:00)
[2017-11-08] MEDS: NOREPINEPHRINE 8 MG in SODIUM CHLORIDE 0.9% 242 ML IV SCH (18:09)
[2017-11-08] MEDS: MIDAZOLAM 100 MG in SODIUM CHLORIDE 0.9% 80 ML IV SCH (18:44)
[2017-11-08] MEDS: LEVOFLOXACIN INJ 750 MG in PREMIX 1 EACH IV SCH (21:12)
[2017-11-09] MEDS: VANCOMYCIN INJ 1,500 MG in SODIUM CHLORIDE 0.9% 500 ML IV SCH ×2 (00:08→23:43)
[2017-11-09] MEDS: SODIUM CHLORIDE 0.45% 1,000 ML IV SCH ×3 (00:08→17:05)
[2017-11-09] MEDS: ALBUTEROL/IPRATROPIUM 3 ML NEB RESP TX SCH ×4 (00:27→20:13)
[2017-11-09] MEDS: PIPERACILLIN/TAZOBACTAM 3,375 MG in SODIUM CHLORIDE 0.9% 100 ML IV SCH ×3 (00:37→17:06)
[2017-11-09] MEDS: methylPREDNISolone SOD SUC 125 MG/2 ML VIAL IV SCH ×5 (00:41→23:43)
[2017-11-09] MEDS: PROPOFOL 1,000 MG/100 ML BOTTLE IV SCH ×10 (01:50→23:29)
[2017-11-09 08:53] LABS: ABG Base Excess -4.8 MMOL/L (-2.5-2.5); ABG HCO3 22.2 MMOL/L (20-26); ABG Oxygen Saturation 96.7 % (95-100); ABG PCO2 50.5 MM HG (35-48); ABG PO2 94.8 MM HG (80-95); ABG TCO2 23.7 MMOL/L (23-27)
[2017-11-09] MEDS: ASPIRIN CHEW 81 MG TABLET PO SCH (10:02)
[2017-11-09] MEDS: TICAGRELOR 90 MG TABLET PO SCH ×2 (10:02→20:19)
[2017-11-09] MEDS ORDERED: GLUCAGON 1 MG VIAL IM PRN (16:06)
[2017-11-09] MEDS ORDERED: DEXTROSE 50% 25 GM/50 ML VIAL IV PRN (16:06)
[2017-11-09] MEDS: PANTOPRAZOLE 40 MG VIAL IV SCH (17:20)
[2017-11-09] MEDS: INSULIN REGULAR 100 UNIT/ML SUBCUT SCH ×2 (18:50→23:48)
[2017-11-09] MEDS: NOREPINEPHRINE 8 MG in SODIUM CHLORIDE 0.9% 242 ML IV SCH (18:51)
[2017-11-09] MEDS: MIDAZOLAM 100 MG in SODIUM CHLORIDE 0.9% 80 ML IV SCH (19:11)
[2017-11-09] MEDS: fentaNYL INJ 1,250 MCG in SODIUM CHLORIDE 0.9% 225 ML IV SCH (20:16)
[2017-11-10] MEDS: PIPERACILLIN/TAZOBACTAM 3,375 MG in SODIUM CHLORIDE 0.9% 100 ML IV SCH ×3 (01:23→18:12)
[2017-11-10] MEDS: SODIUM CHLORIDE 0.45% 1,000 ML IV SCH ×3 (01:24→15:01)
[2017-11-10] MEDS: PROPOFOL 1,000 MG/100 ML BOTTLE IV SCH ×8 (01:32→23:20)
[2017-11-10] MEDS: ALBUTEROL/IPRATROPIUM 3 ML NEB RESP TX SCH ×4 (02:29→18:28)
[2017-11-10 03:57] LABS: Allen Test Positive; Pt O2 Delivery Device Ventilator
[2017-11-10 04:07] LABS: ABG Base Excess -4.9 MMOL/L (-2.5-2.5); ABG HCO3 20.3 MMOL/L (20-26); ABG Oxygen Saturation 95.7 % (95-100); ABG PCO2 50.5 MM HG (35-48); ABG PH 7.254 (7.35-7.45); ABG PO2 85.6 MM HG (80-95); ABG TCO2 21.1 MMOL/L (23-27)
[2017-11-10] MEDS: INSULIN REGULAR 100 UNIT/ML SUBCUT SCH ×3 (05:14→18:21)
[2017-11-10] MEDS: methylPREDNISolone SOD SUC 125 MG/2 ML VIAL IV SCH ×3 (05:51→18:21)
[2017-11-10 06:00] LABS: Magnesium 2.3 MG/DL (1.8-2.4); Prealbumin 17.4 MG/DL (20-40)
[2017-11-10] MEDS: fentaNYL INJ 1,250 MCG in SODIUM CHLORIDE 0.9% 225 ML IV SCH ×2 (08:21→21:13)
[2017-11-10] MEDS: TICAGRELOR 90 MG TABLET PO SCH ×2 (08:32→21:13)
[2017-11-10] MEDS: ASPIRIN CHEW 81 MG TABLET PO SCH (08:32)
[2017-11-10 10:07] LABS: Basophils % 0.1 % (0.0-0.8); Hemoglobin 7.2 GM/DL (12.0-16.0); Immature Granulocytes % 1.9 %; Immature Granulocytes Absolute 0.15 #; Lymphocytes # 0.8 10*3/uL (1.4-4.0); Lymphocytes % 9.6 % (21.3-54.2); Mean Corpuscular HGB Conc 31.3 GM/DL (32-36); Mean Corpuscular Hemoglobin 30 PG (27-34); Mean Corpuscular Volume 94.7 FL (87-102); Mean Platelet Volume 9.6 FL (9.6-12.0); Monocytes # 0.4 10*3/uL (0.11-0.8); Monocytes % 5.3 % (1.7-12.7); Neutrophils # 6.7 10*3/uL (1.4-7.4); Neutrophils % 83.1 % (38.7-73.9); Platelet Count 157 T/CUMM (130-400); Red Blood Count 2.43 MC/CUMM (3.8-5.5); Red Cell Distribution Width 14.2 % (9.3-17.3); White Blood Count 8.1 T/CUMM (4-12)
[2017-11-10 10:31] LABS: Alanine Aminotransferase 11 U/L (13-56); Albumin 1.6 G/DL (3.4-5.0); Alkaline Phosphatase 44 U/L (45-117); Aspartate Amino Transferase 21 U/L (0-37); Bilirubin,Total < 0.39 MG/DL (0.2-1.0); Blood Urea Nitrogen 42 MG/DL (7-18); Calcium 6.7 MG/DL (8.5-10.1); Glucose 113 MG/DL (74-106); Osmolality,Calculated 284.8 MOS/KG (273-304); Potassium 3.9 MMOL/L (3.5-5.1); Sodium 137 MMOL/L (136-145); Total Protein 4.6 G/DL (6.4-8.3)
[2017-11-10] MEDS: FUROSEMIDE 20 MG/2 ML VIAL IV SCH ×2 (11:12→19:27)
[2017-11-10 16:26] LABS: Procalcitonin, S 6.5 ng/mL (<=0.15)
[2017-11-10] MEDS: PANTOPRAZOLE 40 MG VIAL IV SCH (18:15)
[2017-11-10] MEDS: LEVOFLOXACIN INJ 750 MG in PREMIX 1 EACH IV SCH (21:12)
[2017-11-10 22:21] LABS: Apearance,Urine CLOUDY (Clear); Bilirubin,Urine Negative (Negative); Blood, Urine Large mg/dL (Negative); Glucose,Urine (UA) Negative (Negative); Ketones,Urine Negative (Negative); Mucus,Urine Occasional /LPF (Occasional); Nitrite,Urine Negative (Negative); Protein,Urine Negative; RBC,Urine 297 /HPF (0-4); Urine Color Yellow (Yellow); Urine Specific Gravity 1.011 (1.001-1.035); Urine Urobilinogen < 2.0 EU/DL (0.2-1.0); WBC,Urine 1 /HPF (0-6)
[2017-11-10] MEDS: VANCOMYCIN INJ 1,500 MG in SODIUM CHLORIDE 0.9% 500 ML IV SCH (23:00)
[2017-11-11] MEDS: INSULIN REGULAR 100 UNIT/ML SUBCUT SCH ×4 (00:29→18:05)
[2017-11-11] MEDS: methylPREDNISolone SOD SUC 125 MG/2 ML VIAL IV SCH ×3 (00:29→12:42)
[2017-11-11] MEDS: ALBUTEROL/IPRATROPIUM 3 ML NEB RESP TX SCH ×4 (00:33→19:52)
[2017-11-11] MEDS: PIPERACILLIN/TAZOBACTAM 3,375 MG in SODIUM CHLORIDE 0.9% 100 ML IV SCH ×3 (00:35→18:22)
[2017-11-11] MEDS: FUROSEMIDE 20 MG/2 ML VIAL IV SCH ×3 (02:59→18:08)
[2017-11-11] MEDS: PROPOFOL 1,000 MG/100 ML BOTTLE IV SCH ×6 (03:03→21:52)
[2017-11-11 04:11] LABS: ABG Base Excess -2.7 MMOL/L (-2.5-2.5); ABG HCO3 24.4 MMOL/L (20-26); ABG Oxygen Saturation 96.1 % (95-100); ABG PCO2 53.7 MM HG (35-48); ABG PH 7.275 (7.35-7.45); Allen Test Positive; Pt O2 Delivery Device Ventilator
[2017-11-11 05:33] LABS: Basophils % 0.3 % (0.0-0.8); Hematocrit 27.7 VOL% (35.7-47.0); Hemoglobin 8.8 GM/DL (12.0-16.0); Immature Granulocytes % 2.2 %; Immature Granulocytes Absolute 0.17 #; Lymphocytes # 0.7 10*3/uL (1.4-4.0); Lymphocytes % 8.5 % (21.3-54.2); Mean Corpuscular HGB Conc 31.8 GM/DL (32-36); Mean Corpuscular Hemoglobin 29 PG (27-34); Mean Corpuscular Volume 92.6 FL (87-102); Mean Platelet Volume 9.4 FL (9.6-12.0); Monocytes # 0.3 10*3/uL (0.11-0.8); Monocytes % 4.4 % (1.7-12.7); Neutrophils # 6.6 10*3/uL (1.4-7.4); Neutrophils % 84.6 % (38.7-73.9); Platelet Count 202 T/CUMM (130-400); Red Blood Count 2.99 MC/CUMM (3.8-5.5); Red Cell Distribution Width 14.1 % (9.3-17.3); White Blood Count 7.8 T/CUMM (4-12)
[2017-11-11] MEDS: SODIUM CHLORIDE 0.45% 1,000 ML IV SCH (05:41)
[2017-11-11 06:05] LABS: Calcium 7.8 MG/DL (8.5-10.1); Osmolality,Calculated 301.8 MOS/KG (273-304); Potassium 4.1 MMOL/L (3.5-5.1)
[2017-11-11] MEDS: TICAGRELOR 90 MG TABLET PO SCH ×2 (09:21→21:52)
[2017-11-11] MEDS: ASPIRIN CHEW 81 MG TABLET PO SCH (09:21)
[2017-11-11] MEDS: fentaNYL INJ 1,250 MCG in SODIUM CHLORIDE 0.9% 225 ML IV SCH ×2 (09:36→21:51)
[2017-11-11] MEDS: methylPREDNISolone SOD SUC 40 MG/1 ML VIAL IV SCH (17:52)
[2017-11-11] MEDS: FLUCONAZOLE 200 MG TABLET PO SCH (17:52)
[2017-11-11] MEDS: PANTOPRAZOLE 40 MG VIAL IV SCH (18:16)
[2017-11-12] MEDS: PROPOFOL 1,000 MG/100 ML BOTTLE IV SCH ×8 (00:44→21:11)
[2017-11-12] MEDS: ALBUTEROL/IPRATROPIUM 3 ML NEB RESP TX SCH ×4 (00:55→20:39)
[2017-11-12] MEDS: PIPERACILLIN/TAZOBACTAM 3,375 MG in SODIUM CHLORIDE 0.9% 100 ML IV SCH ×3 (02:00→17:19)
[2017-11-12] MEDS: INSULIN REGULAR 100 UNIT/ML SUBCUT SCH ×4 (02:08→17:29)
[2017-11-12] MEDS: FUROSEMIDE 20 MG/2 ML VIAL IV SCH ×4 (02:19→17:49)
[2017-11-12 03:42] LABS: ABG HCO3 27.1 MMOL/L (20-26); ABG Oxygen Saturation 99.2 % (95-100); ABG PCO2 41.3 MM HG (35-48); ABG PH 7.432 (7.35-7.45); ABG TCO2 25.5 MMOL/L (23-27); Allen Test Positive; Pt O2 Delivery Device Ventilator
[2017-11-12 05:02] LABS: Basophils % 0.2 % (0.0-0.8); Eosinophils % 0.2 % (0.00-10.9); Hematocrit 27.1 VOL% (35.7-47.0); Hemoglobin 8.7 GM/DL (12.0-16.0); Immature Granulocytes Absolute 0.21 #; Lymphocytes % 18.4 % (21.3-54.2); Mean Corpuscular HGB Conc 32.1 GM/DL (32-36); Mean Corpuscular Hemoglobin 29 PG (27-34); Mean Corpuscular Volume 90.3 FL (87-102); Mean Platelet Volume 9.3 FL (9.6-12.0); Monocytes # 0.3 10*3/uL (0.11-0.8); Monocytes % 4.9 % (1.7-12.7); Neutrophils # 3.8 10*3/uL (1.4-7.4); Neutrophils % 72.3 % (38.7-73.9); Platelet Count 239 T/CUMM (130-400); Red Cell Distribution Width 13.6 % (9.3-17.3); White Blood Count 5.3 T/CUMM (4-12)
[2017-11-12 05:25] LABS: Osmolality,Calculated 305.6 MOS/KG (273-304); Potassium 3.5 MMOL/L (3.5-5.1)
[2017-11-12] MEDS: methylPREDNISolone SOD SUC 40 MG/1 ML VIAL IV SCH ×3 (05:30→15:38)
[2017-11-12 05:33] LABS: Hypochromasia 1+; Microcytosis 1+
[2017-11-12 05:34] LABS: Platelet Estimate Normal
[2017-11-12] MEDS: ASPIRIN CHEW 81 MG TABLET PO SCH (08:34)
[2017-11-12] MEDS: TICAGRELOR 90 MG TABLET PO SCH ×3 (08:34→21:11)
[2017-11-12] MEDS: FLUCONAZOLE 200 MG TABLET PO SCH (08:35)
[2017-11-12] MEDS: ALBUMIN 25% 25 GM in PREMIX 1 EACH IV SCH ×2 (11:25→18:00)
[2017-11-12] MEDS: fentaNYL INJ 1,250 MCG in SODIUM CHLORIDE 0.9% 225 ML IV SCH ×3 (11:50→23:48)
[2017-11-12] MEDS: LEVOFLOXACIN INJ 750 MG in PREMIX 1 EACH IV SCH (15:25)
[2017-11-12] MEDS: PANTOPRAZOLE 40 MG VIAL IV SCH (17:49)
[2017-11-12] MEDS: VANCOMYCIN INJ 1,500 MG in SODIUM CHLORIDE 0.9% 500 ML IV SCH ×2 (23:50)
[2017-11-13] MEDS: INSULIN REGULAR 100 UNIT/ML SUBCUT SCH ×5 (00:22→23:17)
[2017-11-13] MEDS: PROPOFOL 1,000 MG/100 ML BOTTLE IV SCH ×9 (00:44→23:47)
[2017-11-13] MEDS: ALBUTEROL/IPRATROPIUM 3 ML NEB RESP TX SCH ×4 (01:09→19:40)
[2017-11-13] MEDS: PIPERACILLIN/TAZOBACTAM 3,375 MG in SODIUM CHLORIDE 0.9% 100 ML IV SCH ×3 (01:58→17:50)
[2017-11-13] MEDS: ALBUMIN 25% 25 GM in PREMIX 1 EACH IV SCH ×3 (02:00→18:22)
[2017-11-13] MEDS: FUROSEMIDE 20 MG/2 ML VIAL IV SCH (02:10)
[2017-11-13] MEDS: methylPREDNISolone SOD SUC 40 MG/1 ML VIAL IV SCH ×2 (03:28→17:50)
[2017-11-13 03:41] LABS: ABG Base Excess 5.2 MMOL/L (-2.5-2.5); ABG HCO3 29.2 MMOL/L (20-26); ABG Oxygen Saturation 99.7 % (95-100); ABG PCO2 56.4 MM HG (35-48); ABG PH 7.362 (7.35-7.45); Allen Test Positive; Pt O2 Delivery Device Ventilator
[2017-11-13 04:30] LABS: Basophils % 0.2 % (0.0-0.8); Eosinophils # 0.1 10*3/uL (0.0-0.87); Eosinophils % 1.2 % (0.00-10.9); Hematocrit 23.5 VOL% (35.7-47.0); Hemoglobin 7.9 GM/DL (12.0-16.0); Immature Granulocytes % 1.7 %; Immature Granulocytes Absolute 0.08 #; Lymphocytes # 0.9 10*3/uL (1.4-4.0); Lymphocytes % 18.7 % (21.3-54.2); Mean Corpuscular HGB Conc 33.6 GM/DL (32-36); Mean Corpuscular Hemoglobin 32 PG (27-34); Monocytes # 0.2 10*3/uL (0.11-0.8); Neutrophils # 3.5 10*3/uL (1.4-7.4); Neutrophils % 73.2 % (38.7-73.9); Platelet Count 218 T/CUMM (130-400); Red Cell Distribution Width 13.5 % (9.3-17.3); White Blood Count 4.8 T/CUMM (4-12)
[2017-11-13 05:15] LABS: Calcium 6.9 MG/DL (8.5-10.1); Osmolality,Calculated 300.1 MOS/KG (273-304); Potassium 3.2 MMOL/L (3.5-5.1)
[2017-11-13] MEDS ORDERED: POTASSIUM CHLORIDE RIDER 10 MEQ in PREMIX 1 EACH IV PRN (07:38)
[2017-11-13] MEDS: POTASSIUM CHLORIDE RIDER 20 MEQ in PREMIX 1 EACH IV PRN ×2 (09:00→11:00)
[2017-11-13] MEDS: ASPIRIN CHEW 81 MG TABLET PO SCH (10:33)
[2017-11-13] MEDS: TICAGRELOR 90 MG TABLET PO SCH ×2 (10:33→20:20)
[2017-11-13] MEDS: FLUCONAZOLE 200 MG TABLET PO SCH (10:34)
[2017-11-13] MEDS: LEVOFLOXACIN INJ 750 MG in PREMIX 1 EACH IV SCH (13:12)
[2017-11-13] MEDS: FUROSEMIDE 40 MG/4 ML VIAL IV SCH (17:50)
[2017-11-13] MEDS: PANTOPRAZOLE 40 MG VIAL IV SCH (17:55)
[2017-11-13] MEDS: fentaNYL INJ 1,250 MCG in SODIUM CHLORIDE 0.9% 225 ML IV SCH ×3 (17:55→23:48)
[2017-11-13] MEDS ORDERED: MAGNESIUM SULF RIDER 2 GM in PREMIX 1 EACH IV PRN (18:41)
[2017-11-13] MEDS ORDERED: MAGNESIUM SULF RIDER 4 GM in PREMIX 1 EACH IV PRN (18:41)
[2017-11-13] MEDS: VANCOMYCIN INJ 1,500 MG in SODIUM CHLORIDE 0.9% 500 ML IV SCH (22:46)
[2017-11-14] MEDS: PIPERACILLIN/TAZOBACTAM 3,375 MG in SODIUM CHLORIDE 0.9% 100 ML IV SCH ×3 (01:04→17:11)
[2017-11-14] MEDS: ALBUTEROL/IPRATROPIUM 3 ML NEB RESP TX SCH ×4 (01:24→20:08)
[2017-11-14 02:38] LABS: ABG Base Excess 7.3 MMOL/L (-2.5-2.5); ABG HCO3 31.1 MMOL/L (20-26); ABG Oxygen Saturation 97.7 % (95-100); ABG PCO2 54.3 MM HG (35-48); ABG PH 7.396 (7.35-7.45); ABG PO2 89.1 MM HG (80-95); ABG TCO2 31.2 MMOL/L (23-27)
[2017-11-14] MEDS: PROPOFOL 1,000 MG/100 ML BOTTLE IV SCH ×6 (03:07→21:06)
[2017-11-14 04:08] LABS: Eosinophils # 0.2 10*3/uL (0.0-0.87); Eosinophils % 3.9 % (0.00-10.9); Hematocrit 24.6 VOL% (35.7-47.0); Hemoglobin 7.6 GM/DL (12.0-16.0); Immature Granulocytes % 1.3 %; Immature Granulocytes Absolute 0.07 #; Lymphocytes % 19.1 % (21.3-54.2); Mean Corpuscular HGB Conc 30.9 GM/DL (32-36); Mean Corpuscular Hemoglobin 30 PG (27-34); Mean Corpuscular Volume 96.9 FL (87-102); Mean Platelet Volume 9.4 FL (9.6-12.0); Monocytes # 0.3 10*3/uL (0.11-0.8); Monocytes % 5.4 % (1.7-12.7); Neutrophils # 3.7 10*3/uL (1.4-7.4); Neutrophils % 70.3 % (38.7-73.9); Platelet Count 249 T/CUMM (130-400); Red Blood Count 2.54 MC/CUMM (3.8-5.5); Red Cell Distribution Width 13.7 % (9.3-17.3); White Blood Count 5.2 T/CUMM (4-12)
[2017-11-14] MEDS: ALBUMIN 25% 25 GM in PREMIX 1 EACH IV SCH ×3 (04:10→18:20)
[2017-11-14] MEDS: methylPREDNISolone SOD SUC 40 MG/1 ML VIAL IV SCH ×2 (04:10→17:11)
[2017-11-14 04:33] LABS: Calcium 7.6 MG/DL (8.5-10.1); Osmolality,Calculated 315.1 MOS/KG (273-304)
[2017-11-14] MEDS: POTASSIUM CHLORIDE RIDER 20 MEQ in PREMIX 1 EACH IV PRN ×3 (04:58→18:21)
[2017-11-14] MEDS: INSULIN REGULAR 100 UNIT/ML SUBCUT SCH ×4 (05:42→23:34)
[2017-11-14] MEDS: fentaNYL INJ 1,250 MCG in SODIUM CHLORIDE 0.9% 225 ML IV SCH ×3 (06:24→23:07)
[2017-11-14] MEDS: FUROSEMIDE 40 MG/4 ML VIAL IV SCH ×2 (08:25→17:11)
[2017-11-14] MEDS: ASPIRIN CHEW 81 MG TABLET PO SCH (08:25)
[2017-11-14] MEDS: TICAGRELOR 90 MG TABLET PO SCH ×2 (08:25→20:31)
[2017-11-14] MEDS: FLUCONAZOLE 200 MG TABLET PO SCH (08:26)
[2017-11-14] MEDS: metOLazone 2.5 MG TABLET PO SCH (10:09)
[2017-11-14] MEDS: LEVOFLOXACIN INJ 750 MG in PREMIX 1 EACH IV SCH (14:06)
[2017-11-14] MEDS: PANTOPRAZOLE 40 MG VIAL IV SCH (17:11)
[2017-11-14] MEDS: ACETAMINOPHEN 325 MG TABLET PO PRN (20:30)
[2017-11-14] MEDS: VANCOMYCIN INJ 1,500 MG in SODIUM CHLORIDE 0.9% 500 ML IV SCH (23:38)
[2017-11-15] MEDS: PIPERACILLIN/TAZOBACTAM 3,375 MG in SODIUM CHLORIDE 0.9% 100 ML IV SCH ×3 (01:50→18:04)
[2017-11-15] MEDS: PROPOFOL 1,000 MG/100 ML BOTTLE IV SCH ×5 (01:50→23:38)
[2017-11-15] MEDS: ALBUTEROL/IPRATROPIUM 3 ML NEB RESP TX SCH ×4 (01:54→19:36)
[2017-11-15 02:57] LABS: ABG Base Excess 6.6 MMOL/L (-2.5-2.5); ABG HCO3 30.5 MMOL/L (20-26); ABG Oxygen Saturation 99.3 % (95-100); ABG PCO2 50.1 MM HG (35-48); ABG PH 7.424 (7.35-7.45); ABG TCO2 27.2 MMOL/L (23-27); Allen Test Positive; Pt O2 Delivery Device Ventilator
[2017-11-15] MEDS: ALBUMIN 25% 25 GM in PREMIX 1 EACH IV SCH ×3 (03:41→18:20)
[2017-11-15] MEDS: methylPREDNISolone SOD SUC 40 MG/1 ML VIAL IV SCH ×2 (03:50→18:00)
[2017-11-15 04:32] LABS: Eosinophils # 0.3 10*3/uL (0.0-0.87); Eosinophils % 4.3 % (0.00-10.9); Hemoglobin 7.8 GM/DL (12.0-16.0); Immature Granulocytes % 1.4 %; Immature Granulocytes Absolute 0.09 #; Lymphocytes # 0.9 10*3/uL (1.4-4.0); Lymphocytes % 13.8 % (21.3-54.2); Mean Corpuscular HGB Conc 31.2 GM/DL (32-36); Mean Corpuscular Hemoglobin 30 PG (27-34); Mean Corpuscular Volume 96.5 FL (87-102); Mean Platelet Volume 9.9 FL (9.6-12.0); Monocytes # 0.4 10*3/uL (0.11-0.8); Monocytes % 5.4 % (1.7-12.7); Neutrophils # 4.9 10*3/uL (1.4-7.4); Neutrophils % 75.1 % (38.7-73.9); Platelet Count 235 T/CUMM (130-400); Red Blood Count 2.59 MC/CUMM (3.8-5.5); Red Cell Distribution Width 13.9 % (9.3-17.3); White Blood Count 6.5 T/CUMM (4-12)
[2017-11-15 04:35] LABS: Calcium 7.9 MG/DL (8.5-10.1); Potassium 3.1 MMOL/L (3.5-5.1)
[2017-11-15] MEDS: INSULIN REGULAR 100 UNIT/ML SUBCUT SCH ×3 (05:53→18:11)
[2017-11-15] MEDS: fentaNYL INJ 1,250 MCG in SODIUM CHLORIDE 0.9% 225 ML IV SCH ×3 (05:56→21:45)
[2017-11-15] MEDS: POTASSIUM CHLORIDE RIDER 20 MEQ in PREMIX 1 EACH IV PRN ×2 (06:24→09:45)
[2017-11-15 07:50] LABS: Prealbumin 42.1 MG/DL (20-40)
[2017-11-15] MEDS: ASPIRIN CHEW 81 MG TABLET PO SCH (09:33)
[2017-11-15] MEDS: FLUCONAZOLE 200 MG TABLET PO SCH (09:33)
[2017-11-15] MEDS: metOLazone 2.5 MG TABLET PO SCH (09:33)
[2017-11-15] MEDS: TICAGRELOR 90 MG TABLET PO SCH ×2 (09:34→21:18)
[2017-11-15] MEDS: FUROSEMIDE 40 MG/4 ML VIAL IV SCH ×2 (09:38→17:54)
[2017-11-15] MEDS: POTASSIUM CHLORIDE 20 MEQ/15 ML UDCUP PER TUBE SCH ×4 (12:33→21:18)
[2017-11-15] MEDS: LEVOFLOXACIN INJ 750 MG in PREMIX 1 EACH IV SCH (15:07)
[2017-11-15] MEDS: PANTOPRAZOLE 40 MG VIAL IV SCH (18:12)
[2017-11-15] MEDS: ZINC OXIDE PASTE 113 GM TUBE TOP SCH (21:18)
[2017-11-15] MEDS: VANCOMYCIN INJ 1,500 MG in SODIUM CHLORIDE 0.9% 500 ML IV SCH (22:28)
[2017-11-16] MEDS: ALBUTEROL/IPRATROPIUM 3 ML NEB RESP TX SCH ×4 (00:42→19:36)
[2017-11-16] MEDS: INSULIN REGULAR 100 UNIT/ML SUBCUT SCH ×4 (00:45→17:42)
[2017-11-16] MEDS: PIPERACILLIN/TAZOBACTAM 3,375 MG in SODIUM CHLORIDE 0.9% 100 ML IV SCH ×3 (00:46→17:50)
[2017-11-16] MEDS: PROPOFOL 1,000 MG/100 ML BOTTLE IV SCH ×4 (02:27→20:37)
[2017-11-16 03:54] LABS: ABG Base Excess 6.4 MMOL/L (-2.5-2.5); ABG HCO3 31.5 MMOL/L (20-26); ABG Oxygen Saturation 98.1 % (95-100); ABG PCO2 48.6 MM HG (35-48); ABG PO2 122.5 MM HG (80-95); Allen Test Positive; Pt O2 Delivery Device Ventilator
[2017-11-16] MEDS: fentaNYL INJ 1,250 MCG in SODIUM CHLORIDE 0.9% 225 ML IV SCH ×2 (03:54→17:59)
[2017-11-16] MEDS: ACETAMINOPHEN 325 MG TABLET PO PRN (04:12)
[2017-11-16] MEDS: methylPREDNISolone SOD SUC 40 MG/1 ML VIAL IV SCH ×2 (04:15→17:06)
[2017-11-16] MEDS: ALBUMIN 25% 25 GM in PREMIX 1 EACH IV SCH ×3 (04:58→22:20)
[2017-11-16 05:08] LABS: Basophils % 0.2 % (0.0-0.8); Eosinophils # 0.1 10*3/uL (0.0-0.87); Eosinophils % 1.3 % (0.00-10.9); Hematocrit 25.9 VOL% (35.7-47.0); Hemoglobin 8.3 GM/DL (12.0-16.0); Immature Granulocytes Absolute 0.05 #; Lymphocytes # 0.6 10*3/uL (1.4-4.0); Lymphocytes % 10.5 % (21.3-54.2); Mean Corpuscular Hemoglobin 31 PG (27-34); Mean Corpuscular Volume 95.9 FL (87-102); Mean Platelet Volume 10.1 FL (9.6-12.0); Monocytes # 0.4 10*3/uL (0.11-0.8); Monocytes % 7.7 % (1.7-12.7); Neutrophils # 4.1 10*3/uL (1.4-7.4); Neutrophils % 79.3 % (38.7-73.9); Platelet Count 257 T/CUMM (130-400); Red Cell Distribution Width 13.9 % (9.3-17.3); White Blood Count 5.2 T/CUMM (4-12)
[2017-11-16 05:39] LABS: Calcium 8.2 MG/DL (8.5-10.1); Magnesium 2.3 MG/DL (1.8-2.4); Potassium 3.8 MMOL/L (3.5-5.1)
[2017-11-16] MEDS: POTASSIUM CHLORIDE RIDER 20 MEQ in PREMIX 1 EACH IV PRN (06:25)
[2017-11-16] MEDS: FUROSEMIDE 40 MG/4 ML VIAL IV SCH (09:59)
[2017-11-16] MEDS: ASPIRIN CHEW 81 MG TABLET PO SCH (10:10)
[2017-11-16] MEDS: FLUCONAZOLE 200 MG TABLET PO SCH (10:11)
[2017-11-16] MEDS: TICAGRELOR 90 MG TABLET PO SCH ×2 (10:11→20:15)
[2017-11-16] MEDS: ZINC OXIDE PASTE 113 GM TUBE TOP SCH ×2 (12:40→20:15)
[2017-11-16] MEDS: LEVOFLOXACIN INJ 750 MG in PREMIX 1 EACH IV SCH (14:45)
[2017-11-16] MEDS: PANTOPRAZOLE 40 MG VIAL IV SCH (17:52)
[2017-11-17] MEDS: PROPOFOL 1,000 MG/100 ML BOTTLE IV SCH ×6 (00:06→22:45)
[2017-11-17] MEDS: INSULIN REGULAR 100 UNIT/ML SUBCUT SCH ×4 (00:32→19:02)
[2017-11-17] MEDS: PIPERACILLIN/TAZOBACTAM 3,375 MG in SODIUM CHLORIDE 0.9% 100 ML IV SCH ×2 (00:32→10:32)
[2017-11-17] MEDS: ALBUTEROL/IPRATROPIUM 3 ML NEB RESP TX SCH ×4 (00:40→19:49)
[2017-11-17 04:09] LABS: ABG Base Excess 5.8 MMOL/L (-2.5-2.5); ABG HCO3 29.9 MMOL/L (20-26); ABG Oxygen Saturation 98.6 % (95-100); ABG PCO2 41.9 MM HG (35-48); ABG PH 7.472 (7.35-7.45); ABG PO2 163.6 MM HG (80-95); ABG TCO2 31.2 MMOL/L (23-27)
[2017-11-17] MEDS: methylPREDNISolone SOD SUC 40 MG/1 ML VIAL IV SCH ×2 (04:20→19:02)
[2017-11-17] MEDS: ALBUMIN 25% 25 GM in PREMIX 1 EACH IV SCH ×3 (05:23→21:02)
[2017-11-17 07:05] LABS: ABG Base Excess 4.9 MMOL/L (-2.5-2.5); ABG HCO3 28.8 MMOL/L (20-26); ABG Oxygen Saturation 98.6 % (95-100); ABG PCO2 48.5 MM HG (35-48); ABG PH 7.404 (7.35-7.45); ABG TCO2 28.2 MMOL/L (23-27)
[2017-11-17] MEDS: ASPIRIN CHEW 81 MG TABLET PO SCH (10:32)
[2017-11-17] MEDS: TICAGRELOR 90 MG TABLET PO SCH ×2 (10:32→21:02)
[2017-11-17] MEDS: FLUCONAZOLE 200 MG TABLET PO SCH (10:32)
[2017-11-17] MEDS: ZINC OXIDE PASTE 113 GM TUBE TOP SCH ×2 (10:32→21:02)
[2017-11-17] MEDS: fentaNYL INJ 1,250 MCG in SODIUM CHLORIDE 0.9% 225 ML IV SCH ×3 (12:00→23:12)
[2017-11-17] MEDS: LEVOFLOXACIN INJ 750 MG in PREMIX 1 EACH IV SCH (14:08)
[2017-11-17] MEDS: MEROPENEM 1,000 MG in SYRINGE 1 EACH IV SCH (15:49)
[2017-11-17] MEDS: ACETAMINOPHEN 325 MG TABLET PO PRN (15:51)
[2017-11-17] MEDS: PANTOPRAZOLE 40 MG VIAL IV SCH (19:02)
[2017-11-18] MEDS: INSULIN REGULAR 100 UNIT/ML SUBCUT SCH ×4 (00:48→19:24)
[2017-11-18 03:08] LABS: ABG HCO3 28.2 MMOL/L (20-26); ABG Oxygen Saturation 98.3 % (95-100); ABG PCO2 52.2 MM HG (35-48); ABG PH 7.351 (7.35-7.45); ABG PO2 148.9 MM HG (80-95); ABG TCO2 29.8 MMOL/L (23-27); Allen Test Positive; Pt O2 Delivery Device Ventilator
[2017-11-18] MEDS: MEROPENEM 1,000 MG in SYRINGE 1 EACH IV SCH ×2 (03:33→15:53)
[2017-11-18] MEDS: PROPOFOL 1,000 MG/100 ML BOTTLE IV SCH ×5 (04:32→19:15)
[2017-11-18 05:19] LABS: Basophils % 0.4 % (0.0-0.8); Eosinophils # 0.2 10*3/uL (0.0-0.87); Immature Granulocytes % 0.7 %; Immature Granulocytes Absolute 0.04 #; Lymphocytes # 0.9 10*3/uL (1.4-4.0); Lymphocytes % 16.5 % (21.3-54.2); Mean Corpuscular HGB Conc 30.8 GM/DL (32-36); Mean Corpuscular Hemoglobin 30 PG (27-34); Mean Corpuscular Volume 97.6 FL (87-102); Mean Platelet Volume 10.4 FL (9.6-12.0); Monocytes # 0.5 10*3/uL (0.11-0.8); Monocytes % 9.1 % (1.7-12.7); Neutrophils # 3.8 10*3/uL (1.4-7.4); Neutrophils % 69.3 % (38.7-73.9); Platelet Count 196 T/CUMM (130-400); Red Blood Count 2.46 MC/CUMM (3.8-5.5); Red Cell Distribution Width 14.8 % (9.3-17.3); White Blood Count 5.5 T/CUMM (4-12)
[2017-11-18 05:35] LABS: Calcium 8.3 MG/DL (8.5-10.1); Magnesium 2.7 MG/DL (1.8-2.4); Osmolality,Calculated 348.6 MOS/KG (273-304); Potassium 3.2 MMOL/L (3.5-5.1)
[2017-11-18 05:40] LABS: Hemoglobin 7.4 GM/DL (12.0-16.0)
[2017-11-18] MEDS: methylPREDNISolone SOD SUC 40 MG/1 ML VIAL IV SCH ×2 (06:35→18:18)
[2017-11-18] MEDS: ALBUMIN 25% 25 GM in PREMIX 1 EACH IV SCH ×3 (06:37→21:19)
[2017-11-18] MEDS: POTASSIUM CHLORIDE RIDER 20 MEQ in PREMIX 1 EACH IV PRN ×2 (06:42→09:00)
[2017-11-18] MEDS: ALBUTEROL/IPRATROPIUM 3 ML NEB RESP TX SCH ×4 (07:20→21:15)
[2017-11-18] MEDS: ASPIRIN CHEW 81 MG TABLET PO SCH (08:12)
[2017-11-18] MEDS: FLUCONAZOLE 200 MG TABLET PO SCH (08:12)
[2017-11-18] MEDS: TICAGRELOR 90 MG TABLET PO SCH ×2 (08:12→21:23)
[2017-11-18] MEDS: ZINC OXIDE PASTE 113 GM TUBE TOP SCH ×2 (08:13→21:23)
[2017-11-18] MEDS: fentaNYL INJ 1,250 MCG in SODIUM CHLORIDE 0.9% 225 ML IV SCH (12:21)
[2017-11-18] MEDS: PANTOPRAZOLE 40 MG VIAL IV SCH (18:16)
[2017-11-19] MEDS: PROPOFOL 1,000 MG/100 ML BOTTLE IV SCH ×5 (00:23→21:29)
[2017-11-19] MEDS: fentaNYL INJ 1,250 MCG in SODIUM CHLORIDE 0.9% 225 ML IV SCH ×2 (01:15→20:54)
[2017-11-19] MEDS: INSULIN REGULAR 100 UNIT/ML SUBCUT SCH ×4 (01:38→20:55)
[2017-11-19] MEDS: ALBUTEROL/IPRATROPIUM 3 ML NEB RESP TX SCH ×4 (01:58→19:30)
[2017-11-19 03:44] LABS: Allen Test Positive; Pt O2 Delivery Device Ventilator
[2017-11-19 03:45] LABS: ABG Base Excess 0.1 MMOL/L (-2.5-2.5); ABG HCO3 24.5 MMOL/L (20-26); ABG Oxygen Saturation 99.9 % (95-100); ABG PCO2 47.4 MM HG (35-48); ABG PH 7.346 (7.35-7.45); ABG TCO2 24.5 MMOL/L (23-27)
[2017-11-19] MEDS: MEROPENEM 1,000 MG in SYRINGE 1 EACH IV SCH ×2 (05:22→18:40)
[2017-11-19] MEDS: ALBUMIN 25% 25 GM in PREMIX 1 EACH IV SCH (05:23)
[2017-11-19 05:58] LABS: Basophils % 0.3 % (0.0-0.8); Eosinophils % 0.8 % (0.00-10.9); Hematocrit 24.2 VOL% (35.7-47.0); Hemoglobin 7.3 GM/DL (12.0-16.0); Immature Granulocytes % 0.5 %; Immature Granulocytes Absolute 0.02 #; Lymphocytes # 0.8 10*3/uL (1.4-4.0); Lymphocytes % 20.2 % (21.3-54.2); Mean Corpuscular HGB Conc 30.2 GM/DL (32-36); Mean Corpuscular Hemoglobin 30 PG (27-34); Mean Corpuscular Volume 98.4 FL (87-102); Mean Platelet Volume 10.2 FL (9.6-12.0); Monocytes # 0.3 10*3/uL (0.11-0.8); Monocytes % 7.9 % (1.7-12.7); Neutrophils # 2.8 10*3/uL (1.4-7.4); Neutrophils % 70.3 % (38.7-73.9); Platelet Count 186 T/CUMM (130-400); Red Blood Count 2.46 MC/CUMM (3.8-5.5); Red Cell Distribution Width 15.1 % (9.3-17.3); White Blood Count 3.9 T/CUMM (4-12)
[2017-11-19 06:22] LABS: Magnesium 3.1 MG/DL (1.8-2.4); Osmolality,Calculated 355.2 MOS/KG (273-304); Potassium 4.3 MMOL/L (3.5-5.1)
[2017-11-19] MEDS: methylPREDNISolone SOD SUC 40 MG/1 ML VIAL IV SCH (06:43)
[2017-11-19] MEDS: FLUCONAZOLE 200 MG TABLET PO SCH (10:37)
[2017-11-19] MEDS: ALPRAZolam 0.5 MG TABLET PEG PRN (10:37)
[2017-11-19] MEDS: TICAGRELOR 90 MG TABLET PO SCH ×2 (10:38→20:55)
[2017-11-19] MEDS: ZINC OXIDE PASTE 113 GM TUBE TOP SCH ×2 (10:38→20:55)
[2017-11-19] MEDS: ASPIRIN CHEW 81 MG TABLET PO SCH (10:38)
[2017-11-19] MEDS: DEXTROSE 5% 1,000 ML IV SCH (11:20)
[2017-11-19 19:43] LABS: Apearance,Urine Slightly Hazy (Clear); Bacteria,Urine Occasional /HPF (Few); Bilirubin,Urine Negative (Negative); Blood, Urine Moderate mg/dL (Negative); Calcium Oxalate Crystals,Urine Occasional /HPF (Few); Glucose,Urine (UA) Negative (Negative); Ketones,Urine Negative (Negative); Mucus,Urine Occasional /LPF (Occasional); Nitrite,Urine Negative (Negative); Protein,Urine 100 MG/DL; RBC,Urine 4 /HPF (0-4); Squamous Epithelial Cell,Urine Occasional /HPF (0-10); Urine Color Yellow (Yellow); Urine Specific Gravity 1.014 (1.001-1.035); Urine Urobilinogen < 2.0 EU/DL (0.2-1.0); WBC,Urine 3 /HPF (0-6)
[2017-11-19] MEDS: PANTOPRAZOLE 40 MG VIAL IV SCH (20:54)
[2017-11-20] MEDS: DEXTROSE 5% 1,000 ML IV SCH ×2 (00:20→13:56)
[2017-11-20] MEDS: PROPOFOL 1,000 MG/100 ML BOTTLE IV SCH ×5 (00:20→19:45)
[2017-11-20] MEDS: INSULIN REGULAR 100 UNIT/ML SUBCUT SCH ×4 (01:44→18:53)
[2017-11-20 03:47] LABS: Basophils % 0.2 % (0.0-0.8); Eosinophils # 0.4 10*3/uL (0.0-0.87); Eosinophils % 7.3 % (0.00-10.9); Hematocrit 22.5 VOL% (35.7-47.0); Hemoglobin 6.8 GM/DL (12.0-16.0); Immature Granulocytes % 0.5 %; Immature Granulocytes Absolute 0.03 #; Lymphocytes # 1.5 10*3/uL (1.4-4.0); Mean Corpuscular HGB Conc 30.2 GM/DL (32-36); Mean Corpuscular Hemoglobin 30 PG (27-34); Monocytes # 0.3 10*3/uL (0.11-0.8); Monocytes % 5.6 % (1.7-12.7); Neutrophils # 3.6 10*3/uL (1.4-7.4); Neutrophils % 61.4 % (38.7-73.9); Platelet Count 163 T/CUMM (130-400); Red Blood Count 2.25 MC/CUMM (3.8-5.5); Red Cell Distribution Width 15.7 % (9.3-17.3); White Blood Count 5.9 T/CUMM (4-12)
[2017-11-20 03:57] LABS: ABG Base Excess -1.1 MMOL/L (-2.5-2.5); ABG HCO3 23.5 MMOL/L (20-26); ABG Oxygen Saturation 99.9 % (95-100); ABG PCO2 45.7 MM HG (35-48); ABG TCO2 23.5 MMOL/L (23-27); Allen Test Positive; Pt O2 Delivery Device Ventilator
[2017-11-20] MEDS: ALBUTEROL/IPRATROPIUM 3 ML NEB RESP TX SCH ×4 (04:01→19:00)
[2017-11-20] MEDS: MEROPENEM 1,000 MG in SYRINGE 1 EACH IV SCH ×2 (04:05→18:42)
[2017-11-20] MEDS: fentaNYL INJ 1,250 MCG in SODIUM CHLORIDE 0.9% 225 ML IV SCH (04:05)
[2017-11-20 04:21] LABS: Calcium 8.3 MG/DL (8.5-10.1); Magnesium 2.7 MG/DL (1.8-2.4); Osmolality,Calculated 334.6 MOS/KG (273-304); Potassium 3.7 MMOL/L (3.5-5.1)
[2017-11-20] MEDS: ASPIRIN CHEW 81 MG TABLET PO SCH (09:31)
[2017-11-20] MEDS: FLUCONAZOLE 200 MG TABLET PO SCH (09:31)
[2017-11-20] MEDS: TICAGRELOR 90 MG TABLET PO SCH ×2 (09:32→20:59)
[2017-11-20] MEDS: methylPREDNISolone SOD SUC 40 MG/1 ML VIAL IV SCH (09:39)
[2017-11-20] MEDS ORDERED: SODIUM CHLORIDE 0.9% 1,000 ML IV PRN (18:02)
[2017-11-20] MEDS: ZINC OXIDE PASTE 113 GM TUBE TOP SCH ×2 (18:33→21:00)
[2017-11-20] MEDS: PANTOPRAZOLE 40 MG VIAL IV SCH (18:47)
[2017-11-21] MEDS: PROPOFOL 1,000 MG/100 ML BOTTLE IV SCH ×5 (00:41→20:37)
[2017-11-21] MEDS: INSULIN REGULAR 100 UNIT/ML SUBCUT SCH ×4 (01:12→18:25)
[2017-11-21] MEDS: ALBUTEROL/IPRATROPIUM 3 ML NEB RESP TX SCH ×4 (01:20→19:16)
[2017-11-21 03:59] LABS: Allen Test Positive; Pt O2 Delivery Device Ventilator
[2017-11-21 04:03] LABS: ABG Base Excess -2.9 MMOL/L (-2.5-2.5); ABG Oxygen Saturation 99.5 % (95-100); ABG PH 7.313 (7.35-7.45); ABG TCO2 21.6 MMOL/L (23-27)
[2017-11-21] MEDS: DEXTROSE 5% 1,000 ML IV SCH (05:03)
[2017-11-21] MEDS: fentaNYL INJ 1,250 MCG in SODIUM CHLORIDE 0.9% 225 ML IV SCH ×3 (05:03→22:57)
[2017-11-21] MEDS: MEROPENEM 1,000 MG in SYRINGE 1 EACH IV SCH ×3 (05:04→16:32)
[2017-11-21 06:03] LABS: Basophils % 0.2 % (0.0-0.8); Eosinophils # 0.3 10*3/uL (0.0-0.87); Eosinophils % 5.8 % (0.00-10.9); Hematocrit 29.1 VOL% (35.7-47.0); Immature Granulocytes % 0.6 %; Immature Granulocytes Absolute 0.03 #; Lymphocytes # 0.9 10*3/uL (1.4-4.0); Lymphocytes % 16.7 % (21.3-54.2); Mean Corpuscular HGB Conc 33.3 GM/DL (32-36); Mean Corpuscular Hemoglobin 30 PG (27-34); Mean Corpuscular Volume 91.2 FL (87-102); Mean Platelet Volume 10.9 FL (9.6-12.0); Monocytes # 0.3 10*3/uL (0.11-0.8); Monocytes % 5.8 % (1.7-12.7); Neutrophils # 3.6 10*3/uL (1.4-7.4); Neutrophils % 70.9 % (38.7-73.9); Platelet Count 149 T/CUMM (130-400); Red Blood Count 3.19 MC/CUMM (3.8-5.5); Red Cell Distribution Width 14.8 % (9.3-17.3); White Blood Count 5.1 T/CUMM (4-12)
[2017-11-21 06:15] LABS: Hemoglobin 9.7 GM/DL (12.0-16.0)
[2017-11-21 06:31] LABS: Calcium 8.3 MG/DL (8.5-10.1); Magnesium 2.6 MG/DL (1.8-2.4); Osmolality,Calculated 322.1 MOS/KG (273-304)
[2017-11-21] MEDS: FLUCONAZOLE 200 MG TABLET PO SCH (09:36)
[2017-11-21] MEDS: TICAGRELOR 90 MG TABLET PO SCH ×2 (09:36→21:25)
[2017-11-21] MEDS: ASPIRIN CHEW 81 MG TABLET PO SCH (09:36)
[2017-11-21] MEDS: ZINC OXIDE PASTE 113 GM TUBE TOP SCH ×2 (09:36→21:25)
[2017-11-21] MEDS: methylPREDNISolone SOD SUC 40 MG/1 ML VIAL IV SCH (09:42)
[2017-11-21] MEDS: PANTOPRAZOLE 40 MG VIAL IV SCH (18:19)
[2017-11-22] MEDS: INSULIN REGULAR 100 UNIT/ML SUBCUT SCH ×4 (00:26→17:42)
[2017-11-22] MEDS: ALBUTEROL/IPRATROPIUM 3 ML NEB RESP TX SCH ×4 (00:39→20:23)
[2017-11-22] MEDS: PROPOFOL 1,000 MG/100 ML BOTTLE IV SCH ×3 (01:58→17:42)
[2017-11-22 04:15] LABS: ABG Base Excess -3.2 MMOL/L (-2.5-2.5); ABG HCO3 21.7 MMOL/L (20-26); ABG Oxygen Saturation 99.6 % (95-100); ABG PCO2 41.6 MM HG (35-48); ABG PH 7.339 (7.35-7.45); ABG TCO2 20.5 MMOL/L (23-27); Allen Test Positive; Pt O2 Delivery Device Ventilator
[2017-11-22] MEDS: MEROPENEM 1,000 MG in SYRINGE 1 EACH IV SCH ×2 (04:20→16:08)
[2017-11-22 04:21] LABS: Basophils % 0.2 % (0.0-0.8); Eosinophils # 0.3 10*3/uL (0.0-0.87); Eosinophils % 5.5 % (0.00-10.9); Hematocrit 30.3 VOL% (35.7-47.0); Hemoglobin 9.6 GM/DL (12.0-16.0); Immature Granulocytes % 0.3 %; Immature Granulocytes Absolute 0.02 #; Lymphocytes # 0.9 10*3/uL (1.4-4.0); Lymphocytes % 14.9 % (21.3-54.2); Mean Corpuscular HGB Conc 31.7 GM/DL (32-36); Mean Corpuscular Hemoglobin 29 PG (27-34); Mean Corpuscular Volume 92.9 FL (87-102); Mean Platelet Volume 10.8 FL (9.6-12.0); Monocytes # 0.4 10*3/uL (0.11-0.8); Monocytes % 6.2 % (1.7-12.7); Neutrophils # 4.2 10*3/uL (1.4-7.4); Neutrophils % 72.9 % (38.7-73.9); Platelet Count 165 T/CUMM (130-400); Red Blood Count 3.26 MC/CUMM (3.8-5.5); Red Cell Distribution Width 14.9 % (9.3-17.3); White Blood Count 5.8 T/CUMM (4-12)
[2017-11-22 04:36] LABS: Calcium 8.7 MG/DL (8.5-10.1); Magnesium 2.8 MG/DL (1.8-2.4); Osmolality,Calculated 322.7 MOS/KG (273-304); Potassium 4.8 MMOL/L (3.5-5.1)
[2017-11-22 05:03] LABS: Prealbumin 29.8 MG/DL (20-40)
[2017-11-22] MEDS: fentaNYL INJ 1,250 MCG in SODIUM CHLORIDE 0.9% 225 ML IV SCH (07:45)
[2017-11-22] MEDS: ZINC OXIDE PASTE 113 GM TUBE TOP SCH ×2 (09:05→21:34)
[2017-11-22] MEDS: methylPREDNISolone SOD SUC 40 MG/1 ML VIAL IV SCH (09:05)
[2017-11-22] MEDS: FLUCONAZOLE 200 MG TABLET PO SCH (09:06)
[2017-11-22] MEDS: ALPRAZolam 0.5 MG TABLET PEG PRN ×2 (09:08→23:43)
[2017-11-22] MEDS: ASPIRIN CHEW 81 MG TABLET PO SCH (09:11)
[2017-11-22] MEDS: TICAGRELOR 90 MG TABLET PO SCH ×2 (09:11→21:34)
[2017-11-22] MEDS: DEXTROSE 5% 1,000 ML IV SCH (14:32)
[2017-11-22] MEDS: PANTOPRAZOLE 40 MG VIAL IV SCH (17:42)
[2017-11-23] MEDS: INSULIN REGULAR 100 UNIT/ML SUBCUT SCH ×5 (00:02→23:50)
[2017-11-23] MEDS: ALBUTEROL/IPRATROPIUM 3 ML NEB RESP TX SCH ×4 (00:42→19:44)
[2017-11-23] MEDS: PROPOFOL 1,000 MG/100 ML BOTTLE IV SCH ×7 (01:13→23:06)
[2017-11-23 03:56] LABS: ABG Base Excess -1.6 MMOL/L (-2.5-2.5); ABG HCO3 23.1 MMOL/L (20-26); ABG Oxygen Saturation 99.8 % (95-100); ABG PH 7.415 (7.35-7.45); ABG TCO2 20.4 MMOL/L (23-27); Allen Test Positive; Pt O2 Delivery Device Ventilator
[2017-11-23] MEDS: MEROPENEM 1,000 MG in SYRINGE 1 EACH IV SCH ×2 (04:45→16:12)
[2017-11-23] MEDS ORDERED: LIDOCAINE 2%/EPI 20 ML VIAL ONE (06:30)
[2017-11-23] MEDS: TICAGRELOR 90 MG TABLET PO SCH ×2 (08:28→20:01)
[2017-11-23] MEDS: FLUCONAZOLE 200 MG TABLET PO SCH (08:28)
[2017-11-23] MEDS: ASPIRIN CHEW 81 MG TABLET PO SCH (08:28)
[2017-11-23] MEDS: ZINC OXIDE PASTE 113 GM TUBE TOP SCH ×2 (08:43→20:01)
[2017-11-23] MEDS: DEXTROSE 5% 1,000 ML IV SCH (08:53)
[2017-11-23] MEDS: methylPREDNISolone SOD SUC 40 MG/1 ML VIAL IV SCH (11:42)
[2017-11-23] MEDS ORDERED: fentaNYL 100 MCG/2 ML VIAL ONE (11:59)
[2017-11-23] MEDS ORDERED: MIDAZOLAM 2 MG/2 ML VIAL ONE ×2 (11:59)
[2017-11-23] MEDS ORDERED: SEVOFLURANE 1 UNIT/15 MINUTE INH ONE (12:00)
[2017-11-23] MEDS ORDERED: VECURONIUM 10 MG VIAL IV ONE (12:00)
[2017-11-23] MEDS: ENOXAPARIN 40 MG/0.4 ML SYRINGE SUBCUT SCH (14:01)
[2017-11-23] MEDS: PANTOPRAZOLE 40 MG VIAL IV SCH (17:16)
[2017-11-24] MEDS: ALBUTEROL/IPRATROPIUM 3 ML NEB RESP TX SCH ×4 (01:53→19:00)
[2017-11-24] MEDS: PROPOFOL 1,000 MG/100 ML BOTTLE IV SCH ×3 (02:30→18:28)
[2017-11-24 03:51] LABS: Allen Test Positive; Pt O2 Delivery Device Ventilator
[2017-11-24 03:52] LABS: ABG Base Excess -2.5 MMOL/L (-2.5-2.5); ABG HCO3 22.4 MMOL/L (20-26); ABG Oxygen Saturation 99.7 % (95-100); ABG PCO2 37.4 MM HG (35-48); ABG PH 7.382 (7.35-7.45); ABG TCO2 20.3 MMOL/L (23-27)
[2017-11-24] MEDS: MEROPENEM 1,000 MG in SYRINGE 1 EACH IV SCH (04:16)
[2017-11-24 04:47] LABS: Basophils % 0.2 % (0.0-0.8); Eosinophils # 0.5 10*3/uL (0.0-0.87); Eosinophils % 8.6 % (0.00-10.9); Hematocrit 29.3 VOL% (35.7-47.0); Hemoglobin 9.8 GM/DL (12.0-16.0); Immature Granulocytes Absolute 0.06 #; Lymphocytes # 1.3 10*3/uL (1.4-4.0); Lymphocytes % 20.5 % (21.3-54.2); Mean Corpuscular HGB Conc 33.4 GM/DL (32-36); Mean Corpuscular Hemoglobin 31 PG (27-34); Mean Corpuscular Volume 92.1 FL (87-102); Mean Platelet Volume 11.8 FL (9.6-12.0); Monocytes # 0.4 10*3/uL (0.11-0.8); Monocytes % 6.5 % (1.7-12.7); Neutrophils # 3.9 10*3/uL (1.4-7.4); Neutrophils % 63.2 % (38.7-73.9); Platelet Count 155 T/CUMM (130-400); Red Blood Count 3.18 MC/CUMM (3.8-5.5); White Blood Count 6.1 T/CUMM (4-12)
[2017-11-24 05:08] LABS: Calcium 7.5 MG/DL (8.5-10.1); Osmolality,Calculated 306.1 MOS/KG (273-304); Potassium 4.3 MMOL/L (3.5-5.1)
[2017-11-24] MEDS: DEXTROSE 5% 1,000 ML IV SCH (06:01)
[2017-11-24] MEDS: INSULIN REGULAR 100 UNIT/ML SUBCUT SCH ×3 (06:01→18:32)
[2017-11-24] MEDS: TICAGRELOR 90 MG TABLET PO SCH ×2 (10:32→21:49)
[2017-11-24] MEDS: ASPIRIN CHEW 81 MG TABLET PO SCH (10:32)
[2017-11-24] MEDS: ZINC OXIDE PASTE 113 GM TUBE TOP SCH ×2 (10:32→21:49)
[2017-11-24] MEDS: methylPREDNISolone SOD SUC 40 MG/1 ML VIAL IV SCH (10:33)
[2017-11-24] MEDS: ENOXAPARIN 40 MG/0.4 ML SYRINGE SUBCUT SCH (14:27)
[2017-11-24] MEDS: PANTOPRAZOLE 40 MG VIAL IV SCH (18:33)
[2017-11-25] MEDS: PROPOFOL 1,000 MG/100 ML BOTTLE IV SCH ×4 (00:52→23:45)
[2017-11-25] MEDS: ALBUTEROL/IPRATROPIUM 3 ML NEB RESP TX SCH ×4 (01:13→20:06)
[2017-11-25] MEDS: INSULIN REGULAR 100 UNIT/ML SUBCUT SCH ×4 (01:19→19:05)
[2017-11-25 03:53] LABS: ABG Base Excess -1.2 MMOL/L (-2.5-2.5); ABG HCO3 22.1 MMOL/L (20-26); ABG Oxygen Saturation 98.3 % (95-100); ABG PCO2 31.7 MM HG (35-48); ABG PH 7.461 (7.35-7.45); ABG PO2 131.5 MM HG (80-95); ABG TCO2 23.1 MMOL/L (23-27)
[2017-11-25 06:42] LABS: Eosinophils # 0.6 10*3/uL (0.0-0.87); Eosinophils % 11.2 % (0.00-10.9); Hematocrit 29.1 VOL% (35.7-47.0); Hemoglobin 9.2 GM/DL (12.0-16.0); Immature Granulocytes % 0.9 %; Immature Granulocytes Absolute 0.05 #; Lymphocytes # 1.2 10*3/uL (1.4-4.0); Lymphocytes % 21.8 % (21.3-54.2); Mean Corpuscular HGB Conc 31.6 GM/DL (32-36); Mean Corpuscular Hemoglobin 29 PG (27-34); Mean Corpuscular Volume 91.8 FL (87-102); Mean Platelet Volume 10.6 FL (9.6-12.0); Monocytes # 0.3 10*3/uL (0.11-0.8); Monocytes % 5.8 % (1.7-12.7); Neutrophils # 3.4 10*3/uL (1.4-7.4); Neutrophils % 60.3 % (38.7-73.9); Platelet Count 182 T/CUMM (130-400); Red Blood Count 3.17 MC/CUMM (3.8-5.5); Red Cell Distribution Width 14.7 % (9.3-17.3); White Blood Count 5.7 T/CUMM (4-12)
[2017-11-25 07:06] LABS: Eosinophils 15 % (0-10); Lymphocytes 20 % (20-55); Segmented Neutrophils 62 % (50-85); Total Cells Counted 100
[2017-11-25 07:07] LABS: Giant Platelets Few; Hypochromasia 1+; Ovalocytes Slight; Platelet Estimate Normal
[2017-11-25] MEDS: methylPREDNISolone SOD SUC 40 MG/1 ML VIAL IV SCH (12:27)
[2017-11-25] MEDS: TICAGRELOR 90 MG TABLET PO SCH ×2 (12:34→21:50)
[2017-11-25] MEDS: ASPIRIN CHEW 81 MG TABLET PO SCH (12:34)
[2017-11-25] MEDS: ZINC OXIDE PASTE 113 GM TUBE TOP SCH ×2 (12:34→22:21)
[2017-11-25] MEDS: ALPRAZolam 0.5 MG TABLET PEG PRN (12:34)
[2017-11-25] MEDS: ENOXAPARIN 40 MG/0.4 ML SYRINGE SUBCUT SCH (19:03)
[2017-11-25] MEDS: PANTOPRAZOLE 40 MG VIAL IV SCH (19:06)
[2017-11-26] MEDS: ALBUTEROL/IPRATROPIUM 3 ML NEB RESP TX SCH ×4 (00:16→19:31)
[2017-11-26] MEDS: INSULIN REGULAR 100 UNIT/ML SUBCUT SCH ×4 (00:38→17:14)
[2017-11-26 04:28] LABS: ABG Base Excess -1.3 MMOL/L (-2.5-2.5); ABG HCO3 21.9 MMOL/L (20-26); ABG Oxygen Saturation 98.5 % (95-100); ABG PCO2 31.4 MM HG (35-48); ABG PH 7.462 (7.35-7.45); ABG PO2 146.7 MM HG (80-95); ABG TCO2 22.9 MMOL/L (23-27)
[2017-11-26 06:18] LABS: Basophils % 0.2 % (0.0-0.8); Eosinophils # 0.8 10*3/uL (0.0-0.87); Eosinophils % 15.9 % (0.00-10.9); Hematocrit 28.8 VOL% (35.7-47.0); Hemoglobin 9.1 GM/DL (12.0-16.0); Immature Granulocytes % 0.6 %; Immature Granulocytes Absolute 0.03 #; Lymphocytes # 0.9 10*3/uL (1.4-4.0); Mean Corpuscular HGB Conc 31.6 GM/DL (32-36); Mean Corpuscular Hemoglobin 30 PG (27-34); Mean Corpuscular Volume 93.5 FL (87-102); Mean Platelet Volume 12.1 FL (9.6-12.0); Monocytes # 0.3 10*3/uL (0.11-0.8); Monocytes % 5.1 % (1.7-12.7); Neutrophils # 3.1 10*3/uL (1.4-7.4); Neutrophils % 60.2 % (38.7-73.9); Platelet Count 129 T/CUMM (130-400); Red Blood Count 3.08 MC/CUMM (3.8-5.5); Red Cell Distribution Width 14.9 % (9.3-17.3); White Blood Count 5.1 T/CUMM (4-12)
[2017-11-26 06:25] LABS: PT Patient Result 10.2 SECS
[2017-11-26 06:42] LABS: Eosinophils 8 % (0-10); Hypochromasia 2+; Lymphocytes 27 % (20-55); Microcytosis 2+; Segmented Neutrophils 58 % (50-85); Total Cells Counted 100
[2017-11-26 06:43] LABS: Platelet Estimate Adequate
[2017-11-26] MEDS: TICAGRELOR 90 MG TABLET PO SCH ×2 (09:22→20:14)
[2017-11-26] MEDS: ASPIRIN CHEW 81 MG TABLET PO SCH (09:22)
[2017-11-26] MEDS: methylPREDNISolone SOD SUC 40 MG/1 ML VIAL IV SCH (09:22)
[2017-11-26] MEDS: ZINC OXIDE PASTE 113 GM TUBE TOP SCH ×2 (09:23→20:14)
[2017-11-26] MEDS: PROPOFOL 1,000 MG/100 ML BOTTLE IV SCH ×4 (11:36→22:22)
[2017-11-26] MEDS: ENOXAPARIN 40 MG/0.4 ML SYRINGE SUBCUT SCH (11:55)
[2017-11-26] MEDS: PANTOPRAZOLE 40 MG VIAL IV SCH (17:15)
[2017-11-27] MEDS: ALBUTEROL/IPRATROPIUM 3 ML NEB RESP TX SCH ×4 (00:19→20:32)
[2017-11-27] MEDS: INSULIN REGULAR 100 UNIT/ML SUBCUT SCH ×5 (00:20→23:50)
[2017-11-27] MEDS: PROPOFOL 1,000 MG/100 ML BOTTLE IV SCH ×6 (01:45→23:39)
[2017-11-27 02:57] LABS: ABG Base Excess -1.5 MMOL/L (-2.5-2.5); ABG HCO3 21.9 MMOL/L (20-26); ABG Oxygen Saturation 98.7 % (95-100); ABG PCO2 32.1 MM HG (35-48); ABG PH 7.452 (7.35-7.45); ABG PO2 213.6 MM HG (80-95); ABG TCO2 22.9 MMOL/L (23-27); Allen Test Positive; Pt O2 Delivery Device Ventilator
[2017-11-27] MEDS: ZINC OXIDE PASTE 113 GM TUBE TOP SCH ×2 (08:07→20:12)
[2017-11-27] MEDS: methylPREDNISolone SOD SUC 40 MG/1 ML VIAL IV SCH (08:07)
[2017-11-27] MEDS: ASPIRIN CHEW 81 MG TABLET PO SCH (08:07)
[2017-11-27] MEDS: TICAGRELOR 90 MG TABLET PO SCH ×2 (08:07→20:12)
[2017-11-27] MEDS: ENOXAPARIN 40 MG/0.4 ML SYRINGE SUBCUT SCH (11:59)
[2017-11-27] MEDS: PANTOPRAZOLE 40 MG VIAL IV SCH (17:28)
[2017-11-28] MEDS: ALBUTEROL/IPRATROPIUM 3 ML NEB RESP TX SCH ×4 (01:09→19:31)
[2017-11-28] MEDS: PROPOFOL 1,000 MG/100 ML BOTTLE IV SCH ×8 (02:04→23:35)
[2017-11-28 03:17] LABS: ABG Base Excess -1.8 MMOL/L (-2.5-2.5); ABG Oxygen Saturation 99.5 % (95-100); ABG PCO2 37.9 MM HG (35-48); ABG PH 7.389 (7.35-7.45); ABG TCO2 20.7 MMOL/L (23-27); Allen Test Positive; Pt O2 Delivery Device Ventilator
[2017-11-28 05:23] LABS: Calcium 8.7 MG/DL (8.5-10.1); Osmolality,Calculated 307.7 MOS/KG (273-304)
[2017-11-28] MEDS: INSULIN REGULAR 100 UNIT/ML SUBCUT SCH ×4 (06:09→23:39)
[2017-11-28] MEDS: methylPREDNISolone SOD SUC 40 MG/1 ML VIAL IV SCH (08:01)
[2017-11-28] MEDS: ZINC OXIDE PASTE 113 GM TUBE TOP SCH ×2 (08:02→21:21)
[2017-11-28] MEDS: TICAGRELOR 90 MG TABLET PO SCH ×2 (08:02→21:21)
[2017-11-28] MEDS: ASPIRIN CHEW 81 MG TABLET PO SCH (08:02)
[2017-11-28] MEDS ORDERED: FUROSEMIDE 40 MG/4 ML VIAL IV ONE (08:04)
[2017-11-28] MEDS: ENOXAPARIN 40 MG/0.4 ML SYRINGE SUBCUT SCH ×2 (11:24→11:40)
[2017-11-28] MEDS: FUROSEMIDE 40 MG/4 ML VIAL IV SCH (16:16)
[2017-11-28] MEDS: PANTOPRAZOLE 40 MG VIAL IV SCH (17:18)
[2017-11-29] MEDS: ALBUTEROL/IPRATROPIUM 3 ML NEB RESP TX SCH ×4 (00:55→19:57)
[2017-11-29] MEDS: PROPOFOL 1,000 MG/100 ML BOTTLE IV SCH ×3 (01:48→19:49)
[2017-11-29 04:07] LABS: ABG Base Excess 0.5 MMOL/L (-2.5-2.5); ABG HCO3 24.8 MMOL/L (20-26); ABG Oxygen Saturation 98.9 % (95-100); ABG PCO2 39.3 MM HG (35-48); ABG PH 7.411 (7.35-7.45); ABG TCO2 21.7 MMOL/L (23-27); Allen Test Positive; Pt O2 Delivery Device Ventilator
[2017-11-29] MEDS: INSULIN REGULAR 100 UNIT/ML SUBCUT SCH ×4 (05:52→23:40)
[2017-11-29 06:00] LABS: Calcium 8.9 MG/DL (8.5-10.1)
[2017-11-29 06:01] LABS: Potassium 3.9 MMOL/L (3.5-5.1)
[2017-11-29 06:06] LABS: Magnesium 2.3 MG/DL (1.8-2.4); Prealbumin 31.2 MG/DL (20-40)
[2017-11-29] MEDS: FUROSEMIDE 40 MG/4 ML VIAL IV SCH ×2 (08:26→17:46)
[2017-11-29] MEDS: methylPREDNISolone SOD SUC 40 MG/1 ML VIAL IV SCH (08:32)
[2017-11-29] MEDS: ASPIRIN CHEW 81 MG TABLET PO SCH (08:36)
[2017-11-29] MEDS: TICAGRELOR 90 MG TABLET PO SCH ×2 (08:36→20:16)
[2017-11-29] MEDS: ZINC OXIDE PASTE 113 GM TUBE TOP SCH ×2 (12:14→20:16)
[2017-11-29] MEDS: ENOXAPARIN 40 MG/0.4 ML SYRINGE SUBCUT SCH (12:15)
[2017-11-29] MEDS: PANTOPRAZOLE 40 MG VIAL IV SCH (17:54)
[2017-11-30] MEDS: ALBUTEROL/IPRATROPIUM 3 ML NEB RESP TX SCH ×4 (00:11→20:18)
[2017-11-30 03:36] LABS: ABG Base Excess 2.4 MMOL/L (-2.5-2.5); ABG HCO3 24.9 MMOL/L (20-26); ABG Oxygen Saturation 98.6 % (95-100); ABG PCO2 31.4 MM HG (35-48); ABG PH 7.517 (7.35-7.45); ABG PO2 141.3 MM HG (80-95); ABG TCO2 25.9 MMOL/L (23-27)
[2017-11-30 05:30] LABS: Calcium 8.6 MG/DL (8.5-10.1); Osmolality,Calculated 311.8 MOS/KG (273-304); Potassium 3.7 MMOL/L (3.5-5.1)
[2017-11-30] MEDS: INSULIN REGULAR 100 UNIT/ML SUBCUT SCH ×3 (05:34→18:26)
[2017-11-30] MEDS: FUROSEMIDE 40 MG/4 ML VIAL IV SCH ×2 (09:35→18:27)
[2017-11-30] MEDS: methylPREDNISolone SOD SUC 40 MG/1 ML VIAL IV SCH (09:40)
[2017-11-30] MEDS: ASPIRIN CHEW 81 MG TABLET PO SCH (09:44)
[2017-11-30] MEDS: TICAGRELOR 90 MG TABLET PO SCH ×2 (09:44→20:34)
[2017-11-30] MEDS: ZINC OXIDE PASTE 113 GM TUBE TOP SCH ×2 (09:45→20:34)
[2017-11-30] MEDS: ENOXAPARIN 40 MG/0.4 ML SYRINGE SUBCUT SCH (14:06)
[2017-11-30] MEDS: PANTOPRAZOLE 40 MG VIAL IV SCH (18:33)
[2017-11-30] MEDS: PROPOFOL 1,000 MG/100 ML BOTTLE IV SCH (18:38)
[2017-12-01] MEDS: INSULIN REGULAR 100 UNIT/ML SUBCUT SCH ×4 (00:04→17:33)
[2017-12-01] MEDS: ALBUTEROL/IPRATROPIUM 3 ML NEB RESP TX SCH ×4 (00:43→19:45)
[2017-12-01 05:16] LABS: ABG Base Excess 3.9 MMOL/L (-2.5-2.5); ABG HCO3 27.9 MMOL/L (20-26); ABG Oxygen Saturation 97.8 % (95-100); ABG PCO2 41.8 MM HG (35-48); ABG PH 7.441 (7.35-7.45); ABG PO2 96.7 MM HG (80-95); ABG TCO2 25.6 MMOL/L (23-27); Allen Test Positive
[2017-12-01] MEDS: TICAGRELOR 90 MG TABLET PO SCH ×2 (08:17→22:02)
[2017-12-01] MEDS: methylPREDNISolone SOD SUC 40 MG/1 ML VIAL IV SCH ×2 (08:18→19:59)
[2017-12-01] MEDS: ASPIRIN CHEW 81 MG TABLET PO SCH (08:18)
[2017-12-01] MEDS: FUROSEMIDE 40 MG/4 ML VIAL IV SCH ×2 (08:18→16:00)
[2017-12-01] MEDS: ZINC OXIDE PASTE 113 GM TUBE TOP SCH ×2 (08:19→22:02)
[2017-12-01 09:55] LABS: Basophils % 0.4 % (0.0-0.8); Eosinophils # 1.9 10*3/uL (0.0-0.87); Eosinophils % 28.1 % (0.00-10.9); Hemoglobin 10.5 GM/DL (12.0-16.0); Immature Granulocytes % 0.6 %; Immature Granulocytes Absolute 0.04 #; Lymphocytes # 1.2 10*3/uL (1.4-4.0); Lymphocytes % 18.6 % (21.3-54.2); Mean Corpuscular HGB Conc 30.9 GM/DL (32-36); Mean Corpuscular Hemoglobin 29 PG (27-34); Mean Corpuscular Volume 94.4 FL (87-102); Mean Platelet Volume 11.3 FL (9.6-12.0); Monocytes # 0.4 10*3/uL (0.11-0.8); Monocytes % 6.3 % (1.7-12.7); Neutrophils # 3.1 10*3/uL (1.4-7.4); Platelet Count 143 T/CUMM (130-400); Red Cell Distribution Width 15.7 % (9.3-17.3); White Blood Count 6.7 T/CUMM (4-12)
[2017-12-01 10:20] LABS: Eosinophils 30 % (0-10); Hypochromasia 1+; Lymphocytes 7 % (20-55); Segmented Neutrophils 60 % (50-85); Total Cells Counted 100
[2017-12-01 10:21] LABS: Microcytosis 1+
[2017-12-01 10:22] LABS: Ovalocytes Slight
[2017-12-01 11:20] LABS: Apearance,Urine CLEAR (Clear); Bacteria,Urine Occasional /HPF (Few); Bilirubin,Urine Negative (Negative); Blood, Urine Negative (Negative); Glucose,Urine (UA) Negative (Negative); Hyaline Casts,Urine 4 /LPF (0-3); Ketones,Urine Negative (Negative); Nitrite,Urine Negative (Negative); Protein,Urine Negative; RBC,Urine 12 /HPF (0-4); Urine Color Straw (Yellow); Urine Specific Gravity 1.008 (1.001-1.035); Urine Urobilinogen < 2.0 EU/DL (0.2-1.0); WBC,Urine 3 /HPF (0-6)
[2017-12-01] MEDS: ENOXAPARIN 40 MG/0.4 ML SYRINGE SUBCUT SCH (12:21)
[2017-12-01] MEDS: LEVOFLOXACIN INJ 500 MG in PREMIX 1 EACH IV SCH (12:22)
[2017-12-01] MEDS: PIPERACILLIN/TAZOBACTAM 3,375 MG in SODIUM CHLORIDE 0.9% 100 ML IV SCH ×2 (12:23→21:58)
[2017-12-01] MEDS: PROPOFOL 1,000 MG/100 ML BOTTLE IV SCH ×2 (17:33→20:33)
[2017-12-01] MEDS: PANTOPRAZOLE 40 MG VIAL IV SCH (17:33)
[2017-12-01] MEDS ORDERED: LEVALBUTEROL 1.25 MG/3 ML NEB RESP TX PRN (19:27)
[2017-12-01] MEDS ORDERED: diphenhydrAMINE 50 MG/1 ML VIAL IV PRN (19:27)
[2017-12-01] MEDS ORDERED: FAMOTIDINE 20 MG TABLET PO ONE (19:32)
[2017-12-01] MEDS: ACETAMINOPHEN 325 MG TABLET PO PRN (19:59)
[2017-12-01] MEDS ORDERED: SODIUM CHLORIDE 0.9% 500 ML IV ONE (20:25)
[2017-12-01] MEDS: METOPROLOL TARTRATE 5 MG/5 ML VIAL IV PRN (22:02)
[2017-12-01] MEDS: LEVALBUTEROL 1.25 MG/3 ML NEB RESP TX SCH (23:38)
[2017-12-02] MEDS: INSULIN REGULAR 100 UNIT/ML SUBCUT SCH ×4 (01:29→17:34)
[2017-12-02] MEDS: methylPREDNISolone SOD SUC 40 MG/1 ML VIAL IV SCH ×4 (03:01→20:32)
[2017-12-02 03:31] LABS: ABG Base Excess 4.1 MMOL/L (-2.5-2.5); ABG HCO3 28.1 MMOL/L (20-26); ABG Oxygen Saturation 98.7 % (95-100); ABG PCO2 44.7 MM HG (35-48); ABG PH 7.423 (7.35-7.45); ABG TCO2 25.9 MMOL/L (23-27); Allen Test Positive; Pt O2 Delivery Device Ventilator
[2017-12-02] MEDS: PROPOFOL 1,000 MG/100 ML BOTTLE IV SCH ×5 (03:42→21:20)
[2017-12-02] MEDS: LEVALBUTEROL 1.25 MG/3 ML NEB RESP TX SCH ×6 (03:52→23:23)
[2017-12-02] MEDS: PIPERACILLIN/TAZOBACTAM 3,375 MG in SODIUM CHLORIDE 0.9% 100 ML IV SCH ×3 (05:33→20:32)
[2017-12-02 07:05] LABS: Calcium 8.8 MG/DL (8.5-10.1); Magnesium 2.5 MG/DL (1.8-2.4); Osmolality,Calculated 312.1 MOS/KG (273-304); Potassium 3.7 MMOL/L (3.5-5.1)
[2017-12-02 08:03] LABS: Basophils % 0.2 % (0.0-0.8); Eosinophils # 1.7 10*3/uL (0.0-0.87); Hematocrit 32.8 VOL% (35.7-47.0); Hemoglobin 10.2 GM/DL (12.0-16.0); Immature Granulocytes % 0.8 %; Immature Granulocytes Absolute 0.05 #; Lymphocytes # 0.8 10*3/uL (1.4-4.0); Lymphocytes % 12.1 % (21.3-54.2); Mean Corpuscular HGB Conc 31.1 GM/DL (32-36); Mean Corpuscular Hemoglobin 29 PG (27-34); Mean Platelet Volume 10.5 FL (9.6-12.0); Monocytes # 0.5 10*3/uL (0.11-0.8); Neutrophils # 3.5 10*3/uL (1.4-7.4); Neutrophils % 53.9 % (38.7-73.9); Platelet Count 206 T/CUMM (130-400); Red Blood Count 3.49 MC/CUMM (3.8-5.5); Red Cell Distribution Width 15.9 % (9.3-17.3); White Blood Count 6.6 T/CUMM (4-12)
[2017-12-02] MEDS: TICAGRELOR 90 MG TABLET PO SCH ×2 (08:09→20:32)
[2017-12-02] MEDS: FUROSEMIDE 40 MG/4 ML VIAL IV SCH ×2 (08:09→15:00)
[2017-12-02] MEDS: ASPIRIN CHEW 81 MG TABLET PO SCH (08:10)
[2017-12-02] MEDS: ZINC OXIDE PASTE 113 GM TUBE TOP SCH ×2 (08:11→20:33)
[2017-12-02 09:02] LABS: Band Neutrophils 1 % (0-10); Eosinophils 30 % (0-10); Giant Platelets Few; Hypochromasia 1+; Lymphocytes 8 % (20-55); Ovalocytes Slight; Platelet Estimate Adequate; Segmented Neutrophils 56 % (50-85); Total Cells Counted 100
[2017-12-02 09:03] LABS: Microcytosis 1+
[2017-12-02] MEDS: LEVOFLOXACIN INJ 500 MG in PREMIX 1 EACH IV SCH (10:57)
[2017-12-02] MEDS: FAMOTIDINE 20 MG TABLET PO SCH (11:36)
[2017-12-03] MEDS: methylPREDNISolone SOD SUC 40 MG/1 ML VIAL IV SCH ×4 (01:15→21:50)
[2017-12-03] MEDS: INSULIN REGULAR 100 UNIT/ML SUBCUT SCH ×4 (01:15→18:51)
[2017-12-03] MEDS: PROPOFOL 1,000 MG/100 ML BOTTLE IV SCH ×2 (03:50→21:49)
[2017-12-03] MEDS: LEVALBUTEROL 1.25 MG/3 ML NEB RESP TX SCH ×6 (04:17→23:40)
[2017-12-03 04:29] LABS: Allen Test Positive; Pt O2 Delivery Device Ventilator
[2017-12-03 04:33] LABS: ABG Base Excess 3.8 MMOL/L (-2.5-2.5); ABG HCO3 27.8 MMOL/L (20-26); ABG PCO2 42.2 MM HG (35-48); ABG PH 7.435 (7.35-7.45); ABG TCO2 26.1 MMOL/L (23-27)
[2017-12-03] MEDS: PIPERACILLIN/TAZOBACTAM 3,375 MG in SODIUM CHLORIDE 0.9% 100 ML IV SCH ×3 (05:15→21:50)
[2017-12-03 05:57] LABS: Calcium 8.6 MG/DL (8.5-10.1)
[2017-12-03 05:58] LABS: Magnesium 2.7 MG/DL (1.8-2.4); Potassium 3.7 MMOL/L (3.5-5.1)
[2017-12-03 06:07] LABS: Basophils % 0.3 % (0.0-0.8); Eosinophils % 0.6 % (0.00-10.9); Hematocrit 27.9 VOL% (35.7-47.0); Hemoglobin 8.8 GM/DL (12.0-16.0); Immature Granulocytes % 0.9 %; Immature Granulocytes Absolute 0.03 #; Lymphocytes # 0.9 10*3/uL (1.4-4.0); Lymphocytes % 25.3 % (21.3-54.2); Mean Corpuscular HGB Conc 31.5 GM/DL (32-36); Mean Corpuscular Hemoglobin 29 PG (27-34); Mean Corpuscular Volume 93.3 FL (87-102); Mean Platelet Volume 10.9 FL (9.6-12.0); Monocytes # 0.2 10*3/uL (0.11-0.8); Monocytes % 6.5 % (1.7-12.7); Neutrophils # 2.3 10*3/uL (1.4-7.4); Neutrophils % 66.4 % (38.7-73.9); Platelet Count 201 T/CUMM (130-400); Red Blood Count 2.99 MC/CUMM (3.8-5.5); Red Cell Distribution Width 14.9 % (9.3-17.3); White Blood Count 3.4 T/CUMM (4-12)
[2017-12-03 09:20] LABS: Anti SS-A Antibodies < 16 EU/ML; Anti-Nuclear Antibody Pattern SPECKLED
[2017-12-03 09:21] LABS: Anti SS-B Antibodies < 16 EU/ML; Double Stranded DNA Antibodies < 25.0 IU/ML
[2017-12-03] MEDS: ZINC OXIDE PASTE 113 GM TUBE TOP SCH ×2 (09:53→21:51)
[2017-12-03] MEDS: FAMOTIDINE 20 MG TABLET PO SCH (09:53)
[2017-12-03] MEDS: ASPIRIN CHEW 81 MG TABLET PO SCH (09:53)
[2017-12-03] MEDS: TICAGRELOR 90 MG TABLET PO SCH ×2 (09:53→21:51)
[2017-12-03] MEDS: FUROSEMIDE 40 MG/4 ML VIAL IV SCH ×2 (10:06→17:01)
[2017-12-03] MEDS: LEVOFLOXACIN INJ 500 MG in PREMIX 1 EACH IV SCH (12:17)
[2017-12-04] MEDS: ZALEPLON 5 MG CAPSULE PO SCH ×2 (00:22→20:54)
[2017-12-04] MEDS: INSULIN REGULAR 100 UNIT/ML SUBCUT SCH ×4 (00:25→18:15)
[2017-12-04 03:03] LABS: ABG HCO3 29.9 MMOL/L (20-26); ABG Oxygen Saturation 99.4 % (95-100); ABG PCO2 43.6 MM HG (35-48); ABG PH 7.454 (7.35-7.45); ABG TCO2 27.8 MMOL/L (23-27); Allen Test Positive
[2017-12-04] MEDS: LEVALBUTEROL 1.25 MG/3 ML NEB RESP TX SCH ×6 (03:18→23:40)
[2017-12-04] MEDS: PIPERACILLIN/TAZOBACTAM 3,375 MG in SODIUM CHLORIDE 0.9% 100 ML IV SCH ×3 (04:47→20:53)
[2017-12-04] MEDS: methylPREDNISolone SOD SUC 40 MG/1 ML VIAL IV SCH ×3 (04:47→17:50)
[2017-12-04] MEDS: FUROSEMIDE 40 MG/4 ML VIAL IV SCH ×2 (09:16→18:00)
[2017-12-04] MEDS: TICAGRELOR 90 MG TABLET PO SCH ×2 (09:27→20:53)
[2017-12-04] MEDS: ASPIRIN CHEW 81 MG TABLET PO SCH (09:27)
[2017-12-04] MEDS: FAMOTIDINE 20 MG TABLET PO SCH (09:28)
[2017-12-04] MEDS: ZINC OXIDE PASTE 113 GM TUBE TOP SCH ×2 (09:28→20:54)
[2017-12-04] MEDS: LEVOFLOXACIN INJ 500 MG in PREMIX 1 EACH IV SCH (12:13)
[2017-12-04] MEDS: PROPOFOL 1,000 MG/100 ML BOTTLE IV SCH (18:16)
[2017-12-05] MEDS: PIPERACILLIN/TAZOBACTAM 3,375 MG in SODIUM CHLORIDE 0.9% 100 ML IV SCH ×3 (01:05→19:00)
[2017-12-05] MEDS: INSULIN REGULAR 100 UNIT/ML SUBCUT SCH ×4 (01:05→17:56)
[2017-12-05] MEDS: methylPREDNISolone SOD SUC 40 MG/1 ML VIAL IV SCH ×3 (01:05→17:34)
[2017-12-05] MEDS: METOPROLOL TARTRATE 5 MG/5 ML VIAL IV PRN ×2 (01:41→17:58)
[2017-12-05] MEDS: cloNIDine 0.1 MG TABLET PO PRN ×3 (02:35→20:55)
[2017-12-05] MEDS: LEVALBUTEROL 1.25 MG/3 ML NEB RESP TX SCH ×5 (03:40→20:29)
[2017-12-05 04:23] LABS: Allen Test Positive
[2017-12-05 04:27] LABS: ABG Base Excess 6.3 MMOL/L (-2.5-2.5); ABG HCO3 30.2 MMOL/L (20-26); ABG Oxygen Saturation 98.8 % (95-100); ABG PCO2 40.8 MM HG (35-48); ABG TCO2 27.3 MMOL/L (23-27)
[2017-12-05 06:29] LABS: Basophils % 0.2 % (0.0-0.8); Hemoglobin 10.2 GM/DL (12.0-16.0); Immature Granulocytes % 1.7 %; Immature Granulocytes Absolute 0.08 #; Lymphocytes # 0.9 10*3/uL (1.4-4.0); Mean Corpuscular HGB Conc 30.9 GM/DL (32-36); Mean Corpuscular Hemoglobin 29 PG (27-34); Mean Corpuscular Volume 94.3 FL (87-102); Mean Platelet Volume 10.5 FL (9.6-12.0); Monocytes # 0.4 10*3/uL (0.11-0.8); Monocytes % 9.6 % (1.7-12.7); Neutrophils # 3.2 10*3/uL (1.4-7.4); Neutrophils % 69.5 % (38.7-73.9); Platelet Count 222 T/CUMM (130-400); Red Cell Distribution Width 15.1 % (9.3-17.3); White Blood Count 4.6 T/CUMM (4-12)
[2017-12-05 06:54] LABS: Calcium 9.4 MG/DL (8.5-10.1); Magnesium 2.9 MG/DL (1.8-2.4); Osmolality,Calculated 320.4 MOS/KG (273-304); Potassium 3.9 MMOL/L (3.5-5.1)
[2017-12-05] MEDS: FUROSEMIDE 40 MG/4 ML VIAL IV SCH ×2 (08:36→17:40)
[2017-12-05] MEDS: TICAGRELOR 90 MG TABLET PO SCH ×2 (08:46→20:55)
[2017-12-05] MEDS: ASPIRIN CHEW 81 MG TABLET PO SCH (08:46)
[2017-12-05] MEDS: FAMOTIDINE 20 MG TABLET PO SCH (08:46)
[2017-12-05] MEDS: ZINC OXIDE PASTE 113 GM TUBE TOP SCH ×2 (08:46→20:55)
[2017-12-05] MEDS: LEVOFLOXACIN INJ 500 MG in PREMIX 1 EACH IV SCH (12:05)
[2017-12-05] MEDS: PROPOFOL 1,000 MG/100 ML BOTTLE IV SCH (19:52)
[2017-12-05] MEDS: ZALEPLON 5 MG CAPSULE PO SCH (20:57)
[2017-12-06] MEDS: LEVALBUTEROL 1.25 MG/3 ML NEB RESP TX SCH ×6 (00:35→19:58)
[2017-12-06] MEDS: PIPERACILLIN/TAZOBACTAM 3,375 MG in SODIUM CHLORIDE 0.9% 100 ML IV SCH ×3 (00:56→17:13)
[2017-12-06] MEDS: methylPREDNISolone SOD SUC 40 MG/1 ML VIAL IV SCH ×3 (00:57→17:13)
[2017-12-06] MEDS: INSULIN REGULAR 100 UNIT/ML SUBCUT SCH ×4 (00:57→17:13)
[2017-12-06] MEDS: cloNIDine 0.1 MG TABLET PO PRN ×3 (02:30→09:26)
[2017-12-06 03:51] LABS: ABG Base Excess 6.1 MMOL/L (-2.5-2.5); ABG HCO3 30.4 MMOL/L (20-26); ABG Oxygen Saturation 98.8 % (95-100); ABG PCO2 42.4 MM HG (35-48); ABG PH 7.473 (7.35-7.45); ABG PO2 170.1 MM HG (80-95); ABG TCO2 31.7 MMOL/L (23-27); Allen Test Positive
[2017-12-06 06:05] LABS: Magnesium 2.9 MG/DL (1.8-2.4); Prealbumin 36.2 MG/DL (20-40)
[2017-12-06] MEDS: FUROSEMIDE 40 MG/4 ML VIAL IV SCH ×2 (08:12→15:10)
[2017-12-06] MEDS: FAMOTIDINE 20 MG TABLET PO SCH (08:12)
[2017-12-06] MEDS: TICAGRELOR 90 MG TABLET PO SCH ×2 (08:12→21:39)
[2017-12-06] MEDS: ASPIRIN CHEW 81 MG TABLET PO SCH (08:12)
[2017-12-06] MEDS: ZINC OXIDE PASTE 113 GM TUBE TOP SCH ×2 (08:12→21:41)
[2017-12-06] MEDS: METOPROLOL TARTRATE 5 MG/5 ML VIAL IV PRN (08:12)
[2017-12-06] MEDS ORDERED: ALPRAZolam 0.25 MG TABLET PO PRN (09:32)
[2017-12-06] MEDS: CARVEDILOL 6.25 MG TABLET PO SCH ×2 (09:44→21:39)
[2017-12-06] MEDS: LEVOFLOXACIN INJ 500 MG in PREMIX 1 EACH IV SCH (11:08)
[2017-12-06] MEDS ORDERED: ALPRAZolam 0.5 MG TABLET PO ONE (13:21)
[2017-12-06] MEDS: PROPOFOL 1,000 MG/100 ML BOTTLE IV SCH (17:27)
[2017-12-06] MEDS: ZALEPLON 5 MG CAPSULE PO SCH (21:40)
[2017-12-07] MEDS: LEVALBUTEROL 1.25 MG/3 ML NEB RESP TX SCH ×4 (00:05→11:32)
[2017-12-07] MEDS: INSULIN REGULAR 100 UNIT/ML SUBCUT SCH ×3 (01:16→12:25)
[2017-12-07] MEDS: PIPERACILLIN/TAZOBACTAM 3,375 MG in SODIUM CHLORIDE 0.9% 100 ML IV SCH ×2 (01:16→09:49)
[2017-12-07] MEDS: methylPREDNISolone SOD SUC 40 MG/1 ML VIAL IV SCH ×2 (01:18→09:48)
[2017-12-07 05:11] LABS: ABG Base Excess 4.7 MMOL/L (-2.5-2.5); ABG HCO3 28.6 MMOL/L (20-26); ABG Oxygen Saturation 98.9 % (95-100); ABG PCO2 35.7 MM HG (35-48); ABG TCO2 24.7 MMOL/L (23-27)
[2017-12-07] MEDS: FUROSEMIDE 40 MG/4 ML VIAL IV SCH (08:03)
[2017-12-07] MEDS: ASPIRIN CHEW 81 MG TABLET PO SCH (09:47)
[2017-12-07] MEDS: FAMOTIDINE 20 MG TABLET PO SCH (09:47)
[2017-12-07] MEDS: CARVEDILOL 6.25 MG TABLET PO SCH (09:48)
[2017-12-07] MEDS: TICAGRELOR 90 MG TABLET PO SCH (09:48)
[2017-12-07] MEDS: ZINC OXIDE PASTE 113 GM TUBE TOP SCH (09:48)
[2017-12-07 15:50] VITALS: BP 109/87
[2017-12-07] MEDS ORDERED: INSULIN REGULAR 100 UNIT/ML SUBCUT SCH (16:30)
== END 2017-12-07 14:45 | DRG 4 ==
LOC: N.ED 16:37 → N.EDINP 17:21 → SUATTDRO 17:21 → N.CC 17:31
PROVIDERS: ADMIT Internal Medicine Infectious Disease; ATTEND Internal Medicine

== ENCOUNTER 2019-06-07 16:15 | Inpatient (IN) ==
[2019-06-07] MEDS ORDERED: niCARdipine 25 MG/10 ML VIAL IV ONE ×2 (16:47→22:01)
[2019-06-07 17:13] LABS: Basophils % 0.6 % (0.0-0.8); Eosinophils # 0.3 10*3/uL (0.0-0.87); Eosinophils % 3.9 % (0.00-10.9); Hematocrit 40.3 VOL% (35.7-47.0); Hemoglobin 12.3 GM/DL (12.0-16.0); Immature Granulocytes % 0.3 %; Immature Granulocytes Absolute 0.02 #; Lymphocytes # 1.8 10*3/uL (1.4-4.0); Lymphocytes % 26.6 % (21.3-54.2); Mean Corpuscular HGB Conc 30.5 GM/DL (32-36); Mean Platelet Volume 9.6 FL (9.6-12.0); Neutrophils % 61.6 % (38.7-73.9); Platelet Count 239 T/CUMM (130-400); Red Cell Distribution Width 15.2 % (9.3-17.3); White Blood Count 6.9 T/CUMM (4-12)
[2019-06-07] MEDS: niCARdipine INJ 25 MG in SODIUM CHLORIDE 0.9% 240 ML IV PRN ×2 (17:20→22:30)
[2019-06-07] MEDS ORDERED: ALBUTEROL 2.5 MG/3 ML NEB RESP TX PRN (17:41)
[2019-06-07] MEDS ORDERED: ACETAMINOPHEN 325 MG TABLET PO PRN (17:41)
[2019-06-07 17:43] LABS: Albumin 3.4 G/DL (3.4-5.0); Bilirubin,Total 0.6 MG/DL (0.2-1.0); Calcium 8.3 MG/DL (8.5-10.1); Osmolality,Calculated 294.6 MOS/KG (273-304); Total Protein 8.4 G/DL (6.4-8.3)
[2019-06-07] MEDS ORDERED: GLUCAGON 1 MG VIAL IM PRN (17:50)
[2019-06-07] MEDS ORDERED: DEXTROSE 50% 25 GM/50 ML VIAL IV PRN (17:50)
[2019-06-07] MEDS ORDERED: FUROSEMIDE 40 MG/4 ML VIAL IV SCH (17:54)
[2019-06-07] MEDS ORDERED: ENOXAPARIN 80 MG/0.8 ML SYRINGE SUBCUT ONE (18:07)
[2019-06-07 18:12] LABS: Apearance,Urine CLEAR (Clear); Bilirubin,Urine Negative (Negative); Blood, Urine Negative (Negative); Glucose,Urine (UA) Negative (Negative); Ketones,Urine Negative (Negative); Nitrite,Urine Negative (Negative); Protein,Urine Negative; RBC,Urine 1 /HPF (0-4); Squamous Epithelial Cell,Urine Occasional /HPF (0-10); Urine Color Colorless (Yellow); Urine Specific Gravity 1.006 (1.001-1.035); Urine Urobilinogen < 2.0 EU/DL (0.2-1.0)
[2019-06-07] MEDS ORDERED: TICAGRELOR 90 MG TABLET PO SCH (21:00)
[2019-06-07] MEDS: CARVEDILOL 25 MG TABLET PO SCH (22:29)
[2019-06-07] MEDS: ROSUVASTATIN 20 MG TABLET PO SCH (22:29)
[2019-06-07] MEDS: ZALEPLON 5 MG CAPSULE PO PRN (22:30)
[2019-06-07] MEDS: INSULIN LISPRO 100 UNIT/ML SUBCUT SCH (22:30)
[2019-06-08 01:08] LABS: Basophils % 0.4 % (0.0-0.8); Eosinophils # 0.3 10*3/uL (0.0-0.87); Eosinophils % 4.9 % (0.00-10.9); Hematocrit 38.3 VOL% (35.7-47.0); Hemoglobin 11.9 GM/DL (12.0-16.0); Immature Granulocytes % 0.4 %; Immature Granulocytes Absolute 0.03 #; Lymphocytes # 1.5 10*3/uL (1.4-4.0); Lymphocytes % 21.8 % (21.3-54.2); Mean Corpuscular HGB Conc 31.1 GM/DL (32-36); Mean Corpuscular Volume 94.1 FL (87-102); Mean Platelet Volume 9.8 FL (9.6-12.0); Monocytes % 6.3 % (1.7-12.7); Neutrophils % 66.2 % (38.7-73.9); Platelet Count 220 T/CUMM (130-400); Red Blood Count 4.07 MC/CUMM (3.8-5.5); Red Cell Distribution Width 14.7 % (9.3-17.3); White Blood Count 6.8 T/CUMM (4-12)
[2019-06-08 01:20] LABS: INR 1.1; PT Patient Result 11.5 SECS
[2019-06-08 01:55] LABS: Albumin 2.9 G/DL (3.4-5.0); Bilirubin,Total 0.7 MG/DL (0.2-1.0); Calcium 7.8 MG/DL (8.5-10.1); Osmolality,Calculated 294.6 MOS/KG (273-304); Risk Ratio 3.26; Thyroid Stimulating Hormone 3.06 uIU/ml (0.358-3.74); VLDL CHOLESTEROL 22.8 MG/DL
[2019-06-08] MEDS: FUROSEMIDE 40 MG/4 ML VIAL IV SCH ×3 (02:28→19:00)
[2019-06-08] MEDS: INSULIN LISPRO 100 UNIT/ML SUBCUT SCH ×4 (07:08→21:07)
[2019-06-08] MEDS ORDERED: MAGNESIUM SULF RIDER 4 GM in PREMIX 1 EACH IV PRN (07:37)
[2019-06-08] MEDS ORDERED: MAGNESIUM SULF RIDER 2 GM in PREMIX 1 EACH IV PRN (07:37)
[2019-06-08] MEDS: PANTOPRAZOLE 40 MG TABLET PO SCH (08:52)
[2019-06-08] MEDS: ASPIRIN CHEW 81 MG TABLET PO SCH (08:52)
[2019-06-08] MEDS: CARVEDILOL 25 MG TABLET PO SCH ×2 (08:52→19:00)
[2019-06-08] MEDS ORDERED: FUROSEMIDE 40 MG/5 ML UDCUP PO SCH (09:00)
[2019-06-08] MEDS ORDERED: POTASSIUM CHLORIDE 20 MEQ TABLET PO ONE (10:42)
[2019-06-08] MEDS: ENOXAPARIN 30 MG/0.3 ML SYRINGE SUBCUT SCH (10:49)
[2019-06-08] MEDS: ZALEPLON 5 MG CAPSULE PO PRN (22:35)
[2019-06-08] MEDS: ROSUVASTATIN 20 MG TABLET PO SCH (22:35)
[2019-06-09] MEDS: FUROSEMIDE 40 MG/4 ML VIAL IV SCH ×2 (02:35→10:02)
[2019-06-09 02:49] LABS: Barbiturates Screen,Urine Negative (Negative); Benzodiazepines Screen,Urine Negative (Negative); Cannabinoid Screen,Urine Negative (Negative); Opiate Screen,Urine Negative (Negative); Phencyclidine Screen,Urine Negative (Negative)
[2019-06-09 06:21] LABS: Basophils % 0.3 % (0.0-0.8); Eosinophils # 0.3 10*3/uL (0.0-0.87); Eosinophils % 5.1 % (0.00-10.9); Hematocrit 37.8 VOL% (35.7-47.0); Hemoglobin 11.7 GM/DL (12.0-16.0); Immature Granulocytes % 0.3 %; Immature Granulocytes Absolute 0.02 #; Lymphocytes # 1.5 10*3/uL (1.4-4.0); Lymphocytes % 23.3 % (21.3-54.2); Mean Platelet Volume 9.8 FL (9.6-12.0); Platelet Count 220 T/CUMM (130-400); Red Blood Count 4.02 MC/CUMM (3.8-5.5); Red Cell Distribution Width 14.2 % (9.3-17.3); White Blood Count 6.5 T/CUMM (4-12)
[2019-06-09 06:52] LABS: Calcium 8.4 MG/DL (8.5-10.1); Osmolality,Calculated 290.8 MOS/KG (273-304)
[2019-06-09 07:03] LABS: Albumin 2.9 G/DL (3.4-5.0); Bilirubin,Total 0.7 MG/DL (0.2-1.0); Calcium 8.4 MG/DL (8.5-10.1); Total Protein 7.5 G/DL (6.4-8.3)
[2019-06-09] MEDS: INSULIN LISPRO 100 UNIT/ML SUBCUT SCH ×2 (09:30→11:42)
[2019-06-09] MEDS: ASPIRIN CHEW 81 MG TABLET PO SCH (09:33)
[2019-06-09] MEDS: PANTOPRAZOLE 40 MG TABLET PO SCH (09:33)
[2019-06-09] MEDS: CARVEDILOL 25 MG TABLET PO SCH (09:33)
[2019-06-09] MEDS: ENOXAPARIN 30 MG/0.3 ML SYRINGE SUBCUT SCH (10:02)
[2019-06-09] MEDS ORDERED: POTASSIUM CHLORIDE 20 MEQ TABLET PO ONE (12:03)
[2019-06-09 12:44] VITALS: BP 116/86
[2019-06-09] MEDS ORDERED: FUROSEMIDE 40 MG TABLET PO SCH (16:00)
[2019-06-09] MEDS ORDERED: SPIRONOLACTONE 25 MG TABLET PO SCH (16:02)
[2019-06-09] MEDS ORDERED: LOSARTAN 25 MG TABLET PO SCH (21:00)
[2019-06-09] MEDS ORDERED: ASCORBIC ACID 500 MG TABLET PO SCH (21:00)
== END 2019-06-09 14:45 | disposition home or self-care (01) | DRG 291 ==
LOC: EDBD → EDUNIT# → N.ED 16:15 → SUATTDRO 16:59 → N.EDINP 16:59 → N.ICU 17:40 → N.5E 06-08 19:21
PROVIDERS: ADMIT Internal Medicine; ATTEND Internal Medicine Nephrology